=== PATIENT | female | born 1965 | race Caucasian/White ===

== ENCOUNTER → 2017-07-04 | Outpatient (CLI) | payer BC | END | disposition home or self-care (01) | LOC: C.PAPS 16:29 | PROVIDERS: ATTEND Physician Assistant | DX: Z01.419 Encounter for gynecological examination (general) (routine) without abnormal findings (principal); R87.610 Atypical squamous cells of undetermined significance on cytologic smear of cervix (ASC-US) ==

== ENCOUNTER 2022-04-10 11:24 | Inpatient (IN) ==
[2022-04-10] MEDS ORDERED: SODIUM CHLORIDE 0.9% 1000ML 1,000 ML IV STA (11:37)
[2022-04-10] MEDS ORDERED: ONDANSETRON INJ 2 MG/ML 2 ML VIAL IV STA (11:37)
[2022-04-10] MEDS ORDERED: PROMETHAZINE 12.5 MG/50.5 ML BAG IV STA (11:40)
--- NOTE | 2022-04-10 11:45 | Emergency Department Note ---
Impression & Plan Kidney stone on left side, Hydronephrosis, Abnormal LFTs ED Provider Note NAME: JOSE VELÁSQUEZ AGE: 57 SEX: F : 1965 ARRIVES VIA: Walk-In INFORMANT: Patient, ED PROVIDER(S): Cody Allen DO CHIEF COMPLAINT: Flank pain HPI: The patient is a 57-year-old male who presented to the emergency department for an evaluation of flank pain. The patient started having flank pain earlier in the week. She was seen in our facility by myself previously. She was diagnosed with a large proximal ureteral calculus which was associated with some hydronephrosis. The patient was treated in the usual fashion and was able to be discharged home as her pain was significantly improved. The patient returns emergency department today because of worsening pain. She states that she has been compliant with the outpatient medication regimen including Flomax Zofran and the stronger pain medication. She states that she called her family doctor and is starting to set up some follow-up after being in the emergency department. She states that she also noticed a low-grade fever of 100 degrees over the last 2 nights. She states this is atypical for her because her temperature is normally on the lower side. She has had no antipyretics since last evening. She states that she started noticing worsening pain this morning. She describes as a sharp pain especially on the left flank. The patient has been having nausea as well but the Zofran has been making this tolerable. ROS: See above HPI for pertinent positives & negatives. A total of 10 systems reviewed and were otherwise negative. PAST MEDICAL HISTORY: See Below PAST SURGICAL HISTORY: See Below FAMILY HISTORY: See Below SOCIAL HISTORY: See Below HOME MEDICATIONS: See Below ALLERGIES: See Below VITALS: See Below PHYSICAL EXAMINATION: GENERAL: The patient is awake and alert. She is very anxious and appears to be uncomfortable. EYES: The conjunctivae are clear. The pupils are round and reactive. EARS, NOSE, MOUTH AND THROAT: The nose is without any evidence of any deformity. NECK: The neck is nontender and supple. RESPIRATORY: Normal respiratory effort is noted there is no evidence of wheezing rhonchi or rales CARDIOVASCULAR: Regular rate and rhythm noted there no murmurs rubs or gallops normal S1 normal S2. GASTROINTESTINAL: The abdomen is soft and nondistended. There is left upper quadrant tenderness to palpation. There is no guarding rigidity. BACK: There is no midline tenderness. There is significant left CVA tenderness to percussion. MUSCULOSKELETAL/EXTREMITIES: There is no evidence of gross deformity full range of motion is noted in the hips and shoulders. SKIN: There is no obvious evidence of any rash. There are no petechiae, pallor or cyanosis noted. NEUROLOGIC: Patient is awake alert and oriented x3. Gait is steady. MEDICAL DECISION MAKING: The patient is a 57-year-old female who presented to the emergency department for an evaluation of flank pain. I did see the patient 4 days ago for similar complaints. At that time she was diagnosed with a large proximal kidney stone with hydronephrosis. She was treated in the emergency department and was feeling much better. There is no signs of infection and the patient was able to be discharged home to follow-up as an outpatient. She returns today because of ongoing and worsening pain. She was treated with IV fluids and IV pain medication in the emergency department. She was reevaluated multiple times. S he was significantly improved with her symptoms but she has been reporting fever over the last few days. Given the ongoing hydronephrosis I do feel the patient might be a candidate for a ureteral stent. For this reason I discussed her case with the on-call urologist. I also discussed this case with the on-call [facility] hospitalist. I discussed this plan with the patient and she was agreeable. She was given IV antibiotics in the emergency department. The patient was also found to have elevation in her liver function studies. This is not a new finding according to the patient. It may require further follow-up or work-up after her acute issues have been addressed. Triage Nursing notes reviewed. Prior medical records reviewed Vital Signs: reviewed and remarkable for no significant abnormalities Differential diagnosis: Renal colic, UTI, appendicitis, diverticulitis, mesenteric ischemia, aortic pathology, infections, inflammatory bowel disease, PUD, biliary pathology, as well as other pathologies. ER treatment provided: See below Diagnostics interpreted by me: ECG: none Cardiac Monitoring: An order was placed for continuous cardiac monitoring. The monitor shows a rate of 68 bpm with sinus rhythm. Laboratory studies: As stated above and show below. Imaging studies: See below Consultation(s): I discussed this case with Dr. Anderson is on-call for urology. I discussed this case with [facility]. Past Med/Surg History Surgical History H/O section History of appendectomy History of cholecystectomy History of loop electrosurgical excision procedure (LEEP) Family History Grandmother (Paternal) Myocardial infarction Brother Myocardial infarction Father Prostate cancer Denies family history of Ovarian cancer Breast cancer Colorectal cancer Social History Smoking Status: Never smoker Second Hand Exposure: No; Hx Alcohol Use: Yes Alcohol Intake Frequency: Monthly or Less Hx Substance Use: No Preferred Language: Bhutanese marital status: Current Living Situation: Spouse current occupational status: employed How many Children do You have: 2 Feels Safe at Home: Yes Childhood Exposure to Second-Hand Smoke: No caffeine: Yes Dental Care, Regularly: Yes Physical Activity Frequency: 1-2 Times per Week Seatbelt Use: always Sunscreen Use: Yes Allergies Allergies Allergy/AdvReac Type Severity Reaction Status Date / Time Penicillins Allergy Unknown Verified 04/06/22 15:28 Sulfa (Sulfonamide Allergy Unknown Verified 04/06/22 15:28 Antibiotics) Home Meds Home Medications Medication Instructions Recorded Confirmed paroxetine HCl 20 mg tablet 20 mg PO DAILY 10/20/21 04/10/22 Previous Rx's Medication Instructions Recorded ondansetron HCl 4 mg tablet 4 mg PO Q8H PRN #20 tab 04/06/22 oxycodone 5 mg tablet 5 mg PO Q6H PRN #20 tab 04/06/22 tamsulosin 0.4 mg capsule (Flomax) 0.4 mg PO HS #14 cap 04/06/22 Results & Data (ED) Vital Signs Vital Signs - 24 hr 04/10/22 11:30 04/10/22 12:08 04/10/22 12:54 Temperature 36.5 C Temperature Source Temporal Artery Scan Pulse Rate 86 Pulse Rate [Finger] 78 Pulse Rhythm Regular Pulse Strength Normal Respiratory Rate 20 18 Respiratory Effort / Characteristics Non-Labored Spontaneous Respiratory Depth Normal Respiratory Pattern Regular Blood Pressure 145/80 H Blood Pressure [Left Arm] 148/80 H Blood Pressure Mean 101 Blood Pressure Mean [Left Arm] 102 Blood Pressure Position Sitting Pulse Oximetry 98 96 91 Oxygen Delivery Method Room Air Room Air Room Air Sepsis Recent Fever Within 48 Hours No Sepsis New/Unexplained Change in Mental Status No Sepsis Action Taken by Nursing No Action Required 04/10/22 14:10 04/10/22 14:42 Temperature Temperature Source Pulse Rate Pulse Rate [Finger] 76 68 Pulse Rhythm Pulse Strength Respiratory Rate 24 18 Respiratory Effort / Characteristics Respiratory Depth Respiratory Pattern Blood Pressure Blood Pressure [Left Arm] 131/69 126/65 Blood Pressure Mean Blood Pressure Mean [Left Arm] 89 85 Blood Pressure Position Pulse Oximetry 94 97 Oxygen Delivery Method Room Air Room Air Sepsis Recent Fever Within 48 Hours Sepsis New/Unexplained Change in Mental Status Sepsis Action Taken by [facility]dc Medications Current Medication List: was personally reviewed by me Laboratory Data Attestation: I reviewed the patient's lab results. Result diagrams: 04/10/22 11:50 04/10/22 11:50 Lab Results 04/10/22 04/10/22 04/10/22 Range/Units 11:50 11:50 14:10 WBC 6.22 (4.8-10.8) K/uL RBC 4.41 (4.2-5.4) M/uL Hgb 13.6 (12.0-16.0) g/dL Hct 40.1 (37-47) % MCV 90.9 (80-100) fL MCH 30.8 (25-34) pg MCHC 33.9 (32-36) g/dL RDW Std Deviation 43.4 (36.4-46.3) fL RDW Coeff of Neri 13.0 (11.5-14.5) % Plt Count 157 (130-400) K/uL MPV 11.2 H (7.4-10.4) fL Immature Gran % (Auto) 0.2 % Neut % (Auto) 80.5 % Lymph % (Auto) 11.4 % [place] % (Auto) 7.1 % Eos % (Auto) 0.6 % Baso % (Auto) 0.2 % Neut # (Auto) 5.01 (1.4-6.5) K/uL Lymph # (Auto) 0.71 L (1.2-3.4) K/uL [place] # (Auto) 0.44 (0.11-0.59) K/uL Eos # (Auto) 0.04 (0-0.5) K/uL Baso # (Auto) 0.01 (0-0.2) K/uL Immature Gran # (Auto) 0.01 (0.00-0.02) K/uL PT (9.0-12.0) Seconds INR (0.9-1.1) Sodium 140 (136-145) mmol/L Potassium 3.3 L (3.5-5.1) mmol/L Chloride 101 (98-107) mmol/L Carbon Dioxide 31 (21-32) mmol/L Anion Gap 8 (3-11) BUN 14 (6-23) mg/dl Creatinine 1.01 (0.6-1.2) mg/dl Est Cr Clr Drug Dosing 60.6 ml/min Est GFR ( Amer) 71.1 ml/min Est GFR (Non-Af Amer) 61.3 ml/min BUN/Creatinine Ratio 13.9 (10-20) Glucose 123 H (70-99(Fasting)) mg/dl Calcium 9.4 (8.5-10.1) mg/dl Total Bilirubin 1.2 H (0.2-1.0) mg/dl AST 185 H (13-39) U/L ALT 202 H (7-52) U/L Alkaline Phosphatase 192 H (34-104) U/L Total Protein 7.2 (6.0-8.3) gm/dl Albumin 4.1 (3.4-5.0) gm/dl Globulin 3.1 (2.5-4.0) gm/dl Albumin/Globulin Ratio 1.3 (0.9-2) Lipase 15 (11-82) U/L Urine Color Urine Appearance (Clear) Urine pH (4.5-7.5) Ur Specific [place] (1.000-1.030) Urine Protein (Negative) Urine Glucose (UA) (Negative) Urine Ketones (Negative) Urine Blood (Negative) Urine Nitrite (Negative) Urine Bilirubin (Negative) Urine Urobilinogen (Negative) Ur Leukocyte Esterase (Negative) Urine WBC (Auto) (0-5) /hpf Urine RBC (Auto) (0-4) /hpf U Hyaline Cast (Auto) (0-5) /lpf U Epithel Cells (Auto) (0-5) /lpf Urine Bacteria (Auto) (Negative) SARS-CoV-2, RNA, NAAT NEGATIVE (NEGATIVE) 04/10/22 04/10/22 Range/Units 15:19 Unknown WBC (4.8-10.8) K/uL RBC (4.2-5.4) M/uL Hgb (12.0-16.0) g/dL Hct (37-47) % MCV (80-100) fL MCH (25-34) pg MCHC (32-36) g/dL RDW Std Deviation (36.4-46.3) fL RDW Coeff of Neri (11.5-14.5) % Plt Count (130-400) K/uL MPV (7.4-10.4) fL Immature Gran % (Auto) % Neut % (Auto) % Lymph % (Auto) % [place] % (Auto) % Eos % (Auto) % Baso % (Auto) % Neut # (Auto) (1.4-6.5) K/uL Lymph # (Auto) (1.2-3.4) K/uL [place] # (Auto) (0.11-0.59) K/uL Eos # (Auto) (0-0.5) K/uL Baso # (Auto) (0-0.2) K/uL Immature Gran # (Auto) (0.00-0.02) K/uL PT 10.7 (9.0-12.0) Seconds INR 1.0 (0.9-1.1) Sodium (136-145) mmol/L Potassium (3.5-5.1) mmol/L Chloride (98-107) mmol/L Carbon Dioxide (21-32) mmol/L Anion Gap (3-11) BUN (6-23) mg/dl Creatinine (0.6-1.2) mg/dl Est Cr Clr Drug Dosing ml/min Est GFR ( Amer) ml/min Est GFR (Non-Af Amer) ml/min BUN/Creatinine Ratio (10-20) Glucose (70-99(Fasting)) mg/dl Calcium (8.5-10.1) mg/dl Total Bilirubin (0.2-1.0) mg/dl AST (13-39) U/L ALT (7-52) U/L Alkaline Phosphatase (34-104) U/L Total Protein (6.0-8.3) gm/dl Albumin (3.4-5.0) gm/dl Globulin (2.5-4.0) gm/dl Albumin/Globulin Ratio (0.9-2) Lipase (11-82) U/L Urine Color Dark Yellow Urine Appearance Clear (Clear) Urine pH 5.5 (4.5-7.5) Ur Specific [place] 1.033 H (1.000-1.030) Urine Protein 2+ H (Negative) Urine Glucose (UA) Negative (Negative) Urine Ketones 2+ H (Negative) Urine Blood Negative (Negative) Urine Nitrite Positive A (Negative) Urine Bilirubin 2+ H (Negative) Urine Urobilinogen Positive H (Negative) Ur Leukocyte Esterase 1+ H (Negative) Urine WBC (Auto) 1-5 (0-5) /hpf Urine RBC (Auto) 5-10 H (0-4) /hpf U Hyaline Cast (Auto) 5-10 H (0-5) /lpf U Epithel Cells (Auto) >30 H (0-5) /lpf Urine Bacteria (Auto) Negative (Negative) SARS-CoV-2, RNA, NAAT (NEGATIVE) Administered Medications Morphine Sulfate (Morphine Sulfate 4 Mg/Ml 1 Ml Carp\Vial) 4 mg IV Q15M PRN PRN Reason: Pain Stop: 04/24/22 11:36 Last Admin: 04/10/22 12:24 Dose: 4 mg Documented by: [id number] Admin: 04/10/22 11:58 Dose: 4 mg Documented by: [id number] Discontinued Medications Sodium Chloride (Nss 1000ml) 1,000 mls @ 999 mls/hr IV .Q1H1M STA Stop: 04/10/22 12:37 Last Infusion: 04/10/22 13:00 Dose: 0 mls/hr Documented by: [id number] Admin: 04/10/22 11:58 Dose: 999 mls/hr Documented by: [id number] Promethazine HCl (Phenergan) 12.5 mg in 50.5 mls @ 202 mls/hr IV NOW STA Stop: 04/10/22 11:54 Last Infusion: 04/10/22 12:45 Dose: 0 mls/hr Documented by: [id number] Admin: 04/10/22 12:17 Dose: 202 mls/hr Documented by: [id number] Ceftriaxone Sodium (Rocephin) 2,000 mg in 70 mls @ 140 mls/hr IV NOW STA Stop: 04/10/22 14:18 Last Infusion: 04/10/22 14:31 Dose: 0 mls/hr Documented by: [id number] Admin: 04/10/22 14:09 Dose: 140 mls/hr Documented by: [id number] Ondansetron HCl (Ondansetron Inj 2 Mg/Ml 2 Ml Vial) 4 mg IV NOW STA Stop: 04/10/22 11:38 Last Admin: 04/10/22 11:58 Dose: 4 mg Documented by: [id number] Imaging Data Radiologist's Impression: KUB X-Ray 04/10/22 11:37 XR KUB/Abdomen 1 view CLINICAL HISTORY: left sided pain, stone. COMPARISON STUDY: No previous studies for comparison. TECHNIQUE: 2 supine radiographs were obtained. FINDINGS: The bowel gas pattern is within normal limits without evidence for dilatation or obstruction. There is no evidence for organomegaly or gross intra-abdominal ma ss. There is a 3 mm calcification seen in the region of the left renal pelvis. No other calcifications are identified. No acute osseous pathology. IMPRESSION: 1. Evidence for a 3 mm calculus in the region of the left renal pelvis. ACT 112: Negative or not required by law. Electronically signed by: Grabiel Vargas M.D. 04/10/2022 12:29 PM Renal Ultrasound 04/10/22 11:37 US renal/blad retro comp CLINICAL HISTORY: left flanki pain, hx of stone. COMPARISON: Standard radiograph from 04/10/2022 TECHNIQUE: Multiple grayscale and color images of the kidneys and bladder. FINDINGS: Right kidney: The kidney is normal in size and echogenicity. There is no evidence for renal calculus or hydronephrosis. There is no evidence for solid renal mass. There is no evidence for medical renal disease. The kidney measures 11.0 cm in greatest length. Left kidney: The kidney is normal in size and echogenicity. There is mild to moderate left-sided hydronephrosis. There is an approximately 6 mm calculus present in the region of the left UPJ producing the obstruction present. There is no evidence for solid renal mass. There is no evidence for medical renal dise ase. The kidney measures Bladder: The patient voided prior to the study. No ureteral jets are identified. IMPRESSION: 1. Evidence for 6 mm left UPJ calculus with mild to moderate left-sided hydronephrosis. ACT 112: Negative or not required by law. Electronically signed by: Grabiel Vargas M.D. 04/10/2022 1:08 PM Discharge Plan Visit Data Chief Complaint: Kidney Stone Stated Complaint: LEFT FLANK PAIN, KIDNEY STONES ED Provider: Cody Allen Discharge Problem: Kidney stone on left side, Hydronephrosis, Abnormal LFTs Patient Disposition: Being Evaluated by Hospitalist Forms Stand Alone Forms: My [facility] Prescriptions Prescriptions: No Action paroxetine HCl 20 mg tablet 20 mg PO DAILY RF: 0 tamsulosin [Flomax] 0.4 mg capsule 0.4 mg PO HS Qty: 14 RF: 0 oxycodone 5 mg tablet 5 mg PO Q6H PRN (Reason: pain) Qty: 20 RF: 0 ondansetron HCl 4 mg tablet 4 mg PO Q8H PRN (Reason: nausea and vomiting) Qty: 20 RF: 0 Referrals Referrals: PCP,NO [Physician] -
[2022-04-10] MEDS: MoRPHine SULFATE 4 MG/ML 1 ML CARP\\VIAL IV PRN ×2 (11:58→12:24)
[2022-04-10 12:20] LABS: Appearance Urine Clear (Clear); Bacteria Urine Automated Negative (Negative); Blood Urine Negative (Negative); Color Urine Dark Yellow; Epithelial Cell Urine Auto >30 /lpf (0-5); Glucose Urine UA Negative (Negative); Ketones Urine 2+ (Negative); Leukocyte Esterase Urine 1+ (Negative); Nitrite Urine Positive (Negative); Protein Urine 2+ (Negative); Specific Gravity Urine 1.033 (1.000-1.030); Urobilinogen Urine Positive (Negative); pH Urine 5.5 (4.5-7.5)
[2022-04-10 12:21] LABS: Bilirubin Urine 2+ (Negative)
[2022-04-10 12:30] LABS: Albumin Globulin Ratio 1.3 (0.9-2); Albumin Level 4.1 gm/dl (3.4-5.0); BUN Creatinine Ratio 13.9 (10-20); Bilirubin,Total 1.2 mg/dl (0.2-1.0); Calcium 9.4 mg/dl (8.5-10.1); Creatinine Clr Calc Pharmacy 60.6 ml/min; Est GFR (African American) 71.1 ml/min; Est GFR (Non-African American) 61.3 ml/min; Globulin 3.1 gm/dl (2.5-4.0); Potassium 3.3 mmol/L (3.5-5.1); Total Protein 7.2 gm/dl (6.0-8.3)
--- NOTE | 2022-04-10 12:31 | XRay Report ---
XR KUB/Abdomen 1 view CLINICAL HISTORY: left sided pain, stone. COMPARISON STUDY: No previous studies for comparison. TECHNIQUE: 2 supine radiographs were obtained. FINDINGS: The bowel gas pattern is within normal limits without evidence for dilatation or obstruction. There i s no evidence for organomegaly or gross intra-abdominal mass. There is a 3 mm calcification seen in t he region of the left renal pelvis. No other calcifications are identified. No acute osseous patholog y. IMPRESSION: 1. Evidence for a 3 mm calculus in the region of the left renal pelvis. ACT 112: Negative or not required by law. Electronically signed by: Grabiel Vargas M.D. 04/10/2022 12:29 PM
[2022-04-10 12:45] LABS: Basophils # (auto) 0.01 K/uL (0-0.2); Basophils % (auto) 0.2 %; Eosinophils # (auto) 0.04 K/uL (0-0.5); Eosinophils % (auto) 0.6 %; Hematocrit (blood only) 40.1 % (37-47); Hemoglobin 13.6 g/dL (12.0-16.0); Immature Granulocytes # (auto) 0.01 K/uL (0.00-0.02); Immature Granulocytes % (auto) 0.2 %; Lymphocytes # (auto) 0.71 K/uL (1.2-3.4); Lymphocytes % (auto) 11.4 %; Mean Corpuscular Hemoglobin 30.8 pg (25-34); Mean Corpuscular Hgb Conc 33.9 g/dL (32-36); Mean Corpuscular Volume 90.9 fL (80-100); Mean Platelet Volume 11.2 fL (7.4-10.4); Monocytes # (auto) 0.44 K/uL (0.11-0.59); Monocytes % (auto) 7.1 %; Neutrophils # (auto) 5.01 K/uL (1.4-6.5); Neutrophils % (auto) 80.5 %; Platelet Count 157 K/uL (130-400); RDW Standard Deviation 43.4 fL (36.4-46.3); Red Blood Count 4.41 M/uL (4.2-5.4); White Blood Count 6.22 K/uL (4.8-10.8)
--- NOTE | 2022-04-10 13:08 | Ultrasound Report ---
US renal/blad retro comp CLINICAL HISTORY: left flanki pain, hx of stone. COMPARISON: Standard radiograph from 04/10/2022 TECHNIQUE: Multiple grayscale and color images of the kidneys and bladder. FINDINGS: Right kidney: The kidney is normal in size and echogenicity. There is no evidence for renal calculus or hydronephrosis. There is no evidence for solid renal mass. There is no evidence for medical renal disease. The kidney measures 11.0 cm in greatest length. Left kidney: The kidney is normal in size and echogenicity. There is mild to moderate left-sided hydr onephrosis. There is an approximately 6 mm calculus present in the region of the left UPJ producing t he obstruction present. There is no evidence for solid renal mass. There is no evidence for medical r enal disease. The kidney measures Bladder: The patient voided prior to the study. No ureteral jets are identified. IMPRESSION: 1. Evidence for 6 mm left UPJ calculus with mild to moderate left-sided hydronephrosis. ACT 112: Negative or not required by law. Electronically signed by: Grabiel Vargas M.D. 04/10/2022 1:08 PM
[2022-04-10] MEDS ORDERED: cefTRIAXone SODIUM 2,000 MG/70 ML BAG IV STA (13:49)
--- NOTE | 2022-04-10 13:56 | Urology Consultation ---
Date of Consultation April 10, 2022 Assessment & Plan (1) Kidney stone on left side: 57-year-old female with a 4 mm left proximal ureteral calculus with 1 bounce back to the ED as well as subjective fevers at home Recommend admission to medicine team Prophylactic antibiotics Recommend cystoscopy with left retrograde pyelogram and left ureteral stent placement. Based on n.p.o. status and OR availability, will either do this tonight versus tomorrow morning. Risks and benefits discussed. Consent signed. Patient marked. We will let primary team know OR plan tonight in the event that case waits until tomorrow and she can have a diet History of Present Illness Reason for Consultation: Left nephrolithiasis History of Present Illness 57-year-old female with a left-sided obstructing ureteral stone. She initially presented to the emergency department 04/06/[address] scan was performed. This showed a 4 mm left proximal obstructing ureteral calculus. Labs showed a normal white count, creatinine of 0.92 and a urinalysis that was negative outside of microscopic hematuria. She was discharged from the ED. She returned to the ED today with left flank pain and subjective fevers. Labs showed a normal white count of 6.2, a creatinine that was stable at 1.01, and a urinalysis that was positive for nitrites, 1+ leukocyte Estrace, 1-5 WBCs, 5-10 RBCs and negative for bacteria. Renal ultrasound showed left hydronephrosis and a KUB showed a nonobstructing stone in the left renal pelvis. She last ate solid food at 10 AM today. She was afebrile and hemodynamically stable in the ED. Reports pain is controlled now. Allergies Allergy/AdvReac Type Severity Reaction Status Date / Time Penicillins Allergy Unknown Verified 04/06/22 15:28 Sulfa (Sulfonamide Allergy Unknown Verified 04/06/22 15:28 Antibiotics) Home Medications Medication Instructions Recorded Confirmed Type paroxetine HCl 20 mg tablet 20 mg PO DAILY 10/20/21 04/06/22 History ondansetron HCl 4 mg tablet 4 mg PO Q8H PRN #20 tab 04/06/22 Rx oxycodone 5 mg tablet 5 mg PO Q6H PRN #20 tab 04/06/22 Rx tamsulosin 0.4 mg capsule (Flomax) 0.4 mg PO HS #14 cap 04/06/22 Rx Patient History Surgical History H/O section History of appendectomy History of cholecystectomy History of loop electrosurgical excision procedure (LEEP) Family History Grandmother (Paternal) Myocardial infarction Brother Myocardial infarction Father Prostate cancer Denies family history of Ovarian cancer Breast cancer Colorectal cancer Social History Smoking Status: Never smoker Second Hand Exposure: No; Hx Alcohol Use: Yes Alcohol Intake Frequency: Monthly or Less Hx Substance Use: No Preferred Language: Dominican marital status: Current Living Situation: Spouse current occupational status: employed How many Children do You have: 2 Feels Safe at Home: Yes Childhood Exposure to Second-Hand Smoke: No caffeine: Yes Dental Care, Regularly: Yes Physical Activity Frequency: 1-2 Times per Week Seatbelt Use: always Sunscreen Use: Yes Review of Systems Review of Systems: 14 point review of systems negative outside of what is listed above in HPI Physical Exam Physical Exam: General: Alert and oriented, no acute distress HEENT: Normocephalic, mucous membranes moist Pulmonary: Nonlabored respirations Abdomen: Nondistended Extremities: Moves all 4 spontaneously Neuro: No gross deficits Skin: Warm, dry, no rashes noted Results & Data ([facility]) Vital Signs (Past 12 Hours) Vital Signs Temp Pulse Pulse Resp BP BP Pulse Ox 04/10/22 12:54 78 18 148/80 H 91 04/10/22 12:08 96 04/10/22 11:30 36.5 C 86 20 145/80 H 98 PG Care Time/CCT Total # of Minutes Spent Total Time Spent with Patient: Total time spent is greater than 50% in coordination of care (as documented) at patient's floor/unit and/or counseling patient: [place] [address] Inpt Consult Level 5 Patient Type New Diagnoses Kidney stone on left side N20.0
--- NOTE | 2022-04-10 14:44 | History & Physical Report ---
Date of Service April 10, 2022 Assessment & Plan (1) Hydronephrosis: (2) Kidney stone on left side: Plan: - Admit to med surg - Continue fluids, Flomax -Antiemetics with Zofran, morphine sulfate IV for pain -UA, follow culture -Please strain all urine -Urology consulted, Dr. Anderson planning to do stent in the morning, n.p.o. after midnight, allow diet today as patient ate around 10 AM today (3) Abnormal LFTs: Plan: -AST 185, ALT 202, alk phos 192, follow with a.m. labs possible that Paxil has caused increase in LFTs, patient notes that this has been elevated since last May 2021, will need to be followed by PCP as outpatient (4) Depression: Plan: -Paxil as per her [employer] meds 20 mg daily DVT prophylaxis - teds, scds, no heparin in the event of likely placement of urological stent tomorrow morning CODE: Full code Dispo: From home, likely to remain in the hospital x 1-2 days History of Present Illness Chief Complaint: Abdominal pain Primary Care Provider: Hilary Fleming MD This is a 57-year-old female without significant past medical history, who presented to the ER initially on 04/06 where she had a CT of the abdomen pelvis completed showing left mild to moderate hydronephrosis and proximal hydroureter with a 4 mm calculus present within the proximal left ureter just distal to the UPJ producing the obstruction present. 2 additional nonobstructing renal calculi are present measuring 4 and 6 mm. No evidence of right renal calculus or hydronephrosis. She was treated with pain medication and fluid and was improved enough that she wished to go home at that point in time. She represents today for worsening pain, nausea, inability to tolerate po intake, and pain rated 10/10 from the left lower back wrapping around her flank and into the left lower abdomen. KUB of the abdomen shows 3 mm calculus in the left renal pelvis, and renal ultrasound completed today shows 6 mm left UPJ calculus with mild to moderate left-sided hydronephrosis. Her pain is improved at this point after fluids and pain medication in the ER. She reports no bowel movement in 3 days and was using percocet at home a few days ago. She has been medicating herself with Tylenol and ibuprofen alternating at home due to significant pain. She reports having a fever of 100 at home on Monday evening, and admits to having sweats and chills. She last ate this morning around 10 AM. Urology was consulted and recommends that the patient stay for possible stent placement in the morning. Allergies Allergy/AdvReac Type Severity Reaction Status Date / Time Penicillins Allergy Severe hives Verified 04/10/22 17:14 Sulfa (Sulfonamide Allergy itching Verified 04/10/22 17:14 Antibiotics) Home Medications Medication Instructions Recorded Confirmed Type paroxetine HCl 20 mg tablet 20 mg PO DAILY 10/20/21 04/10/22 History ondansetron HCl 4 mg tablet 4 mg PO Q8H PRN #20 tab 04/06/22 04/10/22 Rx oxycodone 5 mg tablet 5 mg PO Q6H PRN #20 tab 04/06/22 04/10/22 Rx tamsulosin 0.4 mg capsule (Flomax) 0.4 mg PO HS #14 cap 04/06/22 04/10/22 Rx Past Med/Surg History Medical History (Updated 04/10/22 @ 17:13 by Gisele Pinon DO) Abnormal LFTs Depression Hyperplastic colon polyp Surgical History H/O section History of appendectomy History of cholecystectomy History of loop electrosurgical excision procedure (LEEP) Family History Grandmother (Paternal) Myocardial infarction Brother Myocardial infarction Father Prostate cancer Denies family history of Ovarian cancer Breast cancer Colorectal cancer Social History Smoking Status: Never smoker Second Hand Exposure: No; Hx Alcohol Use: Yes Alcohol Intake Frequency: Monthly or Less Hx Substance Use: No Preferred Language: Latvian marital status: Current Living Situation: Spouse current occupational status: employed How many Children do You have: 2 Feels Safe at Home: Yes Childhood Exposure to Second-Hand Smoke: No caffeine: Yes Dental Care, Regularly: Yes Physical Activity Frequency: 1-2 Times per Week Seatbelt Use: always Sunscreen Use: Yes Review of Systems Review of Systems: Constitutional: + fever, sweats and chills Eyes: No diplopia, no worsening or blurred vision ENT: normal hearing, no trouble swallowing Respiratory: No cough, sputum, dyspnea at rest or on exertion Cardiovascular: No chest pain, tightness or palpitations Abdomen: As per HPI, + pain, nausea, vomiting, constipation Musculoskeletal: No joint pain, calf pain, swelling Neurologic: No weakness, numbness/tingling, or balance problems Psychiatric: + Anxiety and depression on Paxil for many years Skin: No rash or itch Physical Exam Physical Exam: General: awake, alert, no apparent distress Head: Normocephalic, atraumatic ENT: PERRL, EOMI, no pharyngeal exudate, mucous membranes moist Chest: Clear to auscultation, on room air, no adventitious breath sounds Cardiac: Regular rate and rhythm, no murmur, no JVD, normal peripheral pulses, good capillary refill Abdominal: NABS x 4 quadrants, soft, + slightly distended, negative CVA tenderness, + tender to light palpation left flank and left lower quadrant, no rebound or guarding Extremities: Normal inspection, no peripheral edema or erythema, calfs nontender to palpation Psych: Normal mood and affect Neuro: AAO x 3, strength intact bilaterally and rated 5/5, no motor deficits, speech is clear, no peripheral sensory deficits Results & Data Results & Data ([facility]) Vital Signs (Past 12 Hours) Vital Signs Temp Pulse Pulse Resp BP BP Pulse Ox 04/10/22 14:10 76 24 131/69 94 04/10/22 12:54 78 18 148/80 H 91 04/10/22 12:08 96 04/10/22 11:30 36.5 C 86 20 145/80 H 98 Laboratory Results 04/10/22 Unknown Urine Culture - Pending Urine,Clean Catch 04/10/22 04/10/22 04/10/22 Unknown 14:10 11:50 WBC RBC Hgb Hct MCV MCH MCHC RDW Std Deviation RDW Coeff of Neri Plt Count MPV Immature Gran % (Auto) Neut % (Auto) Lymph % (Auto) [place] % (Auto) Eos % (Auto) Baso % (Auto) Neut # (Auto) Lymph # (Auto) [place] # (Auto) Eos # (Auto) Baso # (Auto) Immature Gran # (Auto) Sodium 140 Potassium 3.3 L Chloride 101 Carbon Dioxide 31 Anion Gap 8 BUN 14 Creatinine 1.01 Est Cr Clr Drug Dosing 60.6 Est GFR ( Amer) 71.1 Est GFR (Non-Af Amer) 61.3 BUN/Creatinine Ratio 13.9 Glucose 123 H Calcium 9.4 Total Bilirubin 1.2 H AST 185 H ALT 202 H Alkaline Phosphatase 192 H Total Protein 7.2 Albumin 4.1 Globulin 3.1 Albumin/Globulin Ratio 1.3 Lipase 15 Urine Color Dark Yellow Urine Appearance Clear Urine pH 5.5 Ur Specific [place] 1.033 H Urine Protein 2+ H Urine Glucose (UA) Negative Urine Ketones 2+ H Urine Blood Negative Urine Nitrite Positive A Urine Bilirubin 2+ H Urine Urobilinogen Positive H Ur Leukocyte Esterase 1+ H Urine WBC (Auto) 1-5 Urine RBC (Auto) 5-10 H U Hyaline Cast (Auto) 5-10 H U Epithel Cells (Auto) >30 H Urine Bacteria (Auto) Negative SARS-CoV-2, RNA, NAAT NEGATIVE 04/10/22 11:50 WBC 6.22 RBC 4.41 Hgb 13.6 Hct 40.1 MCV 90.9 MCH 30.8 MCHC 33.9 RDW Std Deviation 43.4 RDW Coeff of Neri 13.0 Plt Count 157 MPV 11.2 H Immature Gran % (Auto) 0.2 Neut % (Auto) 80.5 Lymph % (Auto) 11.4 [place] % (Auto) 7.1 Eos % (Auto) 0.6 Baso % (Auto) 0.2 Neut # (Auto) 5.01 Lymph # (Auto) 0.71 L [place] # (Auto) 0.44 Eos # (Auto) 0.04 Baso # (Auto) 0.01 Immature Gran # (Auto) 0.01 Sodium Potassium Chloride Carbon Dioxide Anion Gap BUN Creatinine Est Cr Clr Drug Dosing Est GFR ( Amer) Est GFR (Non-Af Amer) BUN/Creatinine Ratio Glucose Calcium Total Bilirubin AST ALT Alkaline Phosphatase Total Protein Albumin Globulin Albumin/Globulin Ratio Lipase Urine Color Urine Appearance Urine pH Ur Specific [place] Urine Protein Urine Glucose (UA) Urine Ketones Urine Blood Urine Nitrite Urine Bilirubin Urine Urobilinogen Ur Leukocyte Esterase Urine WBC (Auto) Urine RBC (Auto) U Hyaline Cast (Auto) U Epithel Cells (Auto) Urine Bacteria (Auto) SARS-CoV-2, RNA, NAAT Diagnostic Findings KUB X-Ray 04/10/22 11:37 XR KUB/Abdomen 1 view CLINICAL HISTORY: left sided pain, stone. COMPARISON STUDY: No previous studies for comparison. TECHNIQUE: 2 supine radiographs were obtained. FINDINGS: The bowel gas pattern is within normal limits without evidence for dilatation or obstruction. There is no evidence for organomegaly or gross intra-abdominal mass. There is a 3 mm calcification seen in the region of the left renal pelvis. No other calcifications are identified. No acute osseous pathology. IMPRESSION: 1. Evidence for a 3 mm calculus in the region of the left renal pelvis. ACT 112: Negative or not required by law. Electronically signed by: Grabiel Vargas M.D. 04/10/2022 12:29 PM Renal Ultrasound 04/10/22 11:37 US renal/blad retro comp CLINICAL HISTORY: left flanki pain, hx of stone. COMPARISON: Standard radiograph from 04/10/2022 TECHNIQUE: Multiple grayscale and color images of the kidneys and bladder. FINDINGS: Right kidney: The kidney is normal in size and echogenicity. There is no evidence for renal calculus or hydronephrosis. There is no evidence for solid renal mass. There is no evidence for medical renal disease. The kidney measures 11.0 cm in greatest length. Left kidney: The kidney is normal in size and echogenicity. There is mild to moderate left-sided hydronephrosis. There is an approximately 6 mm calculus present in the region of the left UPJ producing the obstruction present. There is no evidence for solid renal mass. There is no evidence for medical renal disease. The kidney measures Bladder: The patient voided prior to the study. No ureteral jets are identified. IMPRESSION: 1. Evidence for 6 mm left UPJ calculus with mild to moderate left-sided hydronephrosis. ACT 112: Negative or not required by law. Electronically signed by: Grabiel Vargas M.D. 04/10/2022 1:08 PM Code Status & VTE Plan Code Status Full code-discussed with the patient at bedside Supervising Physician Co-Signing Physician Notes I have seen and examined the patient and have discussed the case with the provider above. I agree with the assessment and plan as stated. 57-year-old female presents with acute worsening left flank pain with radiation to the left lower quadrant. Symptoms started approximately 5 days ago and she was seen in the ER. She was sent home and felt well for couple days but pain progressively became intolerant. She reports some diaphoretic episodes indicating a fever to her but denies chills. She did vomit once and has had no appetite. She has been alternating ibuprofen and Tylenol at home and had 2 oxycodone tablets for severe pain. Lab work today reveals no leukocytosis and hemodynamically she is stable. She is improved since administration of morphine. Additional work-up reveals a low potassium level concentrated urine with presence of ketones and protein consistent with poor appetite over the last several days. Microscopic hematuria in the urine is consistent with kidney stone. There is no evidence of anemia. She has a normal kidney function. There is a mild elevation of bilirubin to 1.2 and a progressively increased AST and ALT, known to be elevated for the past year, and being monitored as outpatient. Most recent AST was January 21, 2022 at 77 now is 185. ALT at that time was 33 now 202. Alk phos at that time 95 now 192. For her acute flank pain secondary to obstructive uropathy, urology is considering a stent procedure. We will continue IV fluids and Flomax and strain all urine. Continue supportive care for this. We will also check additional etiologies for elevated liver function test and consult GI for thoughts and additional recommendations. Work-up will include hepatic ultrasound with Doppler to exclude obstruction and look at hepatic architecture. We will also check for evidence of iron overload, acute viral hepatitis, acetaminophen level in the setting of increased use, and check thyroid function and INR. CONSTITUTIONAL: WNWD, vitals as above, generally NAD EYES: normal conjunctivae, no scleral icterus ENT: external ear and nose normal, MMM NECK: trachea midline RESPIRATORY: clear to auscultation bilaterally, no crackles, rales or wheezes, normal respiratory effort CARDIOVASCULAR: regular rate and rhythm, S1 and 2 heard without murmurs, gallops or rubs, no JVD, no peripheral edema CHEST: inspection of chest was normal GASTROINTESTINAL: normal bowel sounds, soft, nontender except when palpating newar LUQ and L flank, ND, no guarding, + L CVA tenderness. MUSCULOSKELETAL: strength 5/5 throughout, head is normocephalic and atraumatic SKIN: warm and dry NEUROLOGIC: CN 2-12 grossly intact, no sensory deficit, normal cognition, normal speech, no tremor PSYCHIATRIC: alert cooperative and oriented to person, place and time. Euthymic mood, makes good eye contact, language grossly intact, recent and remote memory grossly intact. A/P: 57 yo F with obstructive uropathy 2/2 nephrolithiasis and progressively elevated transaminitis. -consult Urology for stenting and continue supportive care alma-procedurally. -strain all urine, IVF, Flomax -additional workup for LFT elevation as above. -GI consult routine. Gisele Pinon DO [facility] ([facility] Hydronephrosis Hydronephrosis type: unspecified Qualified Code(s): N13.30 - Unspecified hydronephrosis
--- NOTE | 2022-04-10 15:19 | Communication Note ---
Date of Service: April 10, 2022 57-year-old female presents with acute worsening left flank pain with radiation to the left lower quadrant. Symptoms started approximately 5 days ago and she was seen in the ER. She was sent home and felt well for couple days but pain progressively became intolerant. She reports some diaphoretic episodes indicating a fever to her but denies chills. She did vomit once and has had no appetite. She has been alternating ibuprofen and Tylenol at home and had 2 oxycodone tablets for severe pain. Lab work today reveals no leukocytosis and hemodynamically she is stable. She is improved since administration of morphine. Additional work-up reveals a low potassium level concentrated urine with presence of ketones and protein consistent with poor appetite over the last several days. Microscopic hematuria in the urine is consistent with kidney stone. There is no evidence of anemia. She has a normal kidney function. There is a mild elevation of bilirubin to 1.2 and a progressively increased AST and ALT, known to be elevated for the past year, and being monitored as outpatient. Most recent AST was January 21, 2022 at 77 now is 185. ALT at that time was 33 now 202. Alk phos at that time 95 now 192. For her acute flank pain secondary to obstructive uropathy, urology is considering a stent procedure. We will continue IV fluids and Flomax and strain all urine. Continue supportive care for this. We will also check additional etiologies for elevated liver function test and consult GI for thoughts and additional recommendations. Work-up will include hepatic ultrasound with Doppler to exclude obstruction and look at hepatic architecture. We will also check for evidence of iron overload, acute viral hepatitis, acetaminophen level in the setting of increased use, and check thyroid function and INR. CONSTITUTIONAL: WNWD, vitals as above, generally NAD EYES: normal conjunctivae, no scleral icterus ENT: external ear and nose normal, MMM NECK: trachea midline RESPIRATORY: clear to auscultation bilaterally, no crackles, rales or wheezes, normal respiratory effort CARDIOVASCULAR: regular rate and rhythm, S1 and 2 heard without murmurs, gallops or rubs, no JVD, no peripheral edema CHEST: inspection of chest was normal GASTROINTESTINAL: normal bowel sounds, soft, nontender except when palpating newar LUQ and L flank, ND, no guarding, + L CVA tenderness. MUSCULOSKELETAL: strength 5/5 throughout, head is normocephalic and atraumatic SKIN: warm and dry NEUROLOGIC: CN 2-12 grossly intact, no sensory deficit, normal cognition, normal speech, no tremor PSYCHIATRIC: alert cooperative and oriented to person, place and time. Euthymic mood, makes good eye contact, language grossly intact, recent and remote memory grossly intact. A/P: 57 yo F with obstructive uropathy 2/2 nephrolithiasis and progressively elevated transaminitis. -consult Urology for stenting and continue supportive care alma-procedurally. -strain all urine, IVF, Flomax -additional workup for LFT elevation as above. -GI consult routine. Gisele Pinon DO [facility] Hospitalist
[2022-04-10 15:53] LABS: Prothrombin Time 10.7 Seconds (9.0-12.0)
[2022-04-10 16:23] LABS: Ferritin 589.8 ng/ml (8-388)
[2022-04-10] MEDS ORDERED: ONDANSETRON INJ 2 MG/ML 2 ML VIAL IV PRN (17:12)
[2022-04-10] MEDS ORDERED: MoRPHine SULFATE 4 MG/ML 1 ML CARP\\VIAL IV PRN (17:12)
[2022-04-10] MEDS ORDERED: ACETAMINOPHEN 325 MG TAB PO PRN (17:12)
[2022-04-10] MEDS ORDERED: KETOROLAC TROMETHAMINE 15 MG/ML VIAL IV PRN (17:12)
[2022-04-10] MEDS ORDERED: MoRPHine SULFATE 2 MG/ML CARP IV PRN (17:12)
[2022-04-10] MEDS: SODIUM CHLORIDE 0.9% 1000ML 1,000 ML IV SCH (17:32)
[2022-04-10] MEDS: TAMSULOSIN HCL 0.4 MG CAP PO SCH (21:15)
[2022-04-11] MEDS: SODIUM CHLORIDE 0.9% 1000ML 1,000 ML IV SCH ×2 (01:15→10:25)
[2022-04-11 06:12] LABS: Hematocrit (blood only) 32.6 % (37-47); Hemoglobin 10.9 g/dL (12.0-16.0); Mean Corpuscular Hemoglobin 30.5 pg (25-34); Mean Corpuscular Hgb Conc 33.4 g/dL (32-36); Mean Corpuscular Volume 91.3 fL (80-100); Mean Platelet Volume 10.6 fL (7.4-10.4); Platelet Count 140 K/uL (130-400); RDW Coefficient of Variation 13.3 % (11.5-14.5); RDW Standard Deviation 44.4 fL (36.4-46.3); Red Blood Count 3.57 M/uL (4.2-5.4); White Blood Count 4.29 K/uL (4.8-10.8)
[2022-04-11 06:45] LABS: Albumin Globulin Ratio 1.3 (0.9-2); Albumin Level 3.1 gm/dl (3.4-5.0); BUN Creatinine Ratio 12.1 (10-20); Bilirubin Direct 0.2 mg/dl (0-0.2); Bilirubin,Total 0.7 mg/dl (0.2-1.0); Calcium 7.9 mg/dl (8.5-10.1); Creatinine Clr Calc Pharmacy 62.2 ml/min; Est GFR (African American) 72.8 ml/min; Est GFR (Non-African American) 62.8 ml/min; Globulin 2.3 gm/dl (2.5-4.0); Potassium 3.6 mmol/L (3.5-5.1); Total Protein 5.4 gm/dl (6.0-8.3)
--- NOTE | 2022-04-11 07:33 | Anesthesiology Consultation ---
Date of Service April 11, 2022 Assessment & Plan Chart Review Chart Review: Acceptable Risk for Surgery History Surgery Operation Date: 04/10/22 18:00 Proposed Procedures p Cytsoscopy with Left Ureteral Stent insertion - Nicholas Anderson MD Operation Date: 04/11/22 09:45 Proposed Procedures p Cysto, Left Ureteral Stent Insertion/Removal - Lisandro Amezquita, Height/Weight Height: 5 ft 5 in Weight: 73.4 kg Allergies Allergy/AdvReac Type Severity Reaction Status Date / Time Penicillins Allergy Severe hives Verified 04/10/22 17:14 Sulfa (Sulfonamide Allergy itching Verified 04/10/22 17:14 Antibiotics) Medications Home Medications Medication Instructions Recorded Confirmed Last Taken paroxetine HCl 20 mg tablet 20 mg PO DAILY 10/20/21 04/10/22 04/10/22 ondansetron HCl 4 mg tablet 4 mg PO Q8H PRN #20 tab 04/06/22 04/10/22 04/10/22 oxycodone 5 mg tablet 5 mg PO Q6H PRN #20 tab 04/06/22 04/10/22 04/10/22 tamsulosin 0.4 mg capsule (Flomax) 0.4 mg PO HS #14 cap 04/06/22 04/10/22 04/10/22 Active Medications Generic Name Dose Route Start Last Admin Trade Name Freq PRN Reason Stop Dose Admin Sodium Chloride 1,000 mls @ 125 mls/hr 04/10/22 17:12 04/11/22 01:15 Nss 1000ml IV 05/10/22 17:11 125 mls/hr .Q8H ROYER Administration Ketorolac Tromethamine 15 mg 04/10/22 17:12 04/11/22 02:24 Ketorolac Tromethamine 15 Mg/Ml Vial IV 04/15/22 17:11 15 mg Q6H PRN Administration Pain Morphine Sulfate 4 mg 04/10/22 17:12 04/11/22 02:00 Morphine Sulfate 4 Mg/Ml 1 Ml Carp\Vial IV 04/24/22 17:11 4 mg Q2H PRN Administration Pain Tamsulosin HCl 0.4 mg 04/10/22 21:00 04/10/22 21:15 Tamsulosin Hcl 0.4 Mg Cap PO 05/10/22 20:59 0.4 mg HS ROYER Administration NPO Date Last Intake of Fluids: 04/10/22 Time Last Intake of Fluids: 23:59 Date Last Intake of Solids: 04/10/22 Time Last Intake of Solids: 23:59 Past Medical History Medical History (Updated 04/11/22 @ 07:33 by Nabil Mckinney MD) Abnormal LFTs Anemia Depression Hyperplastic colon polyp Past Family History Family History Grandmother (Paternal) Myocardial infarction Brother Myocardial infarction Father Prostate cancer Denies family history of Ovarian cancer Breast cancer Colorectal cancer Past Surgical History Surgical History H/O section History of appendectomy History of cholecystectomy History of loop electrosurgical excision procedure (LEEP) Social History Smoking Status: Never smoker Hx Alcohol Use: Yes alcohol intake frequency: holidays/special occasions only Hx Substance Use: No Physical Exam Vital Signs Last Vital Signs Temp 36.7 C 04/10/22 22:15 Pulse 68 04/10/22 22:15 Resp 18 04/10/22 22:15 BP 155/84 H 04/10/22 22:15 Pulse Ox 97 04/10/22 22:15 Testing Laboratory Results 04/11/22 05:38 04/11/22 05:38 PT 10.7 Seconds (9.0-12.0) 04/10/22 15:19 INR 1.0 (0.9-1.1) 04/10/22 15:19 Urine Color Dark Yellow 04/10/22 Unknown Urine Appearance Clear (Clear) 04/10/22 Unknown Urine pH 5.5 (4.5-7.5) 04/10/22 Unknown Ur Specific [place] 1.033 (1.000-1.030) H 04/10/22 Unknown Urine Protein 2+ (Negative) H 04/10/22 Unknown Urine Glucose (UA) Negative (Negative) 04/10/22 Unknown Urine Ketones 2+ (Negative) H 04/10/22 Unknown Urine Nitrite Positive (Negative) A 04/10/22 Unknown Ur Leukocyte Esterase 1+ (Negative) H 04/10/22 Unknown Urine WBC (Auto) 1-5 /hpf (0-5) 04/10/22 Unknown Urine RBC (Auto) 5-10 /hpf (0-4) H 04/10/22 Unknown U Hyaline Cast (Auto) 5-10 /lpf (0-5) H 04/10/22 Unknown U Epithel Cells (Auto) >30 /lpf (0-5) H 04/10/22 Unknown Urine Bacteria (Auto) Negative (Negative) 04/10/22 Unknown
[2022-04-11] MEDS ORDERED: ONDANSETRON INJ 2 MG/ML 2 ML VIAL ONE (07:36)
[2022-04-11] MEDS ORDERED: LIDOCAINE 2% 2 ML VIAL/AMP(20MG/ML) INFIL ONE (07:36)
[2022-04-11] MEDS ORDERED: fentaNYL citrate 100 MCG/2 ML VIAL ONE (07:36)
[2022-04-11] MEDS ORDERED: MIDAZOLAM HCL 1 MG/ML 2ML VIAL ONE (07:36)
[2022-04-11] MEDS ORDERED: PROPOFOL IV EMULSION 10 MG/ML 20 ML VIAL IV ONE (07:36)
[2022-04-11] MEDS ORDERED: FAMOTIDINE/PF 20 MG/2 ML VIAL IV ONE (07:52)
--- NOTE | 2022-04-11 07:52 | History & Physical Bridge Note ---
Date of Service April 11, 2022 History & Physical Bridge Note I have examined the patient, reviewed the History & Physical and in the interval since the performance of the History & Physical I have noted the following changes of clinical significance: no changes noted Cystoscopy with left stent placement.
--- NOTE | 2022-04-11 07:58 | Ultrasound Report ---
US duplex portal hepatic veins HISTORY: 57 years-old Female elev LFTs, r/o obstr and look at hepatic tissue acutely elevated LFTs COMPARISON: CT abdomen and pelvis 04/06/2022 TECHNIQUE: Multiple real-time sonographic images of the abdominal right upper quadrant were obtained assessing grayscale appearance, color and spectral flow FINDINGS: Patent hepatic, portal and splenic veins. Hepatopedal flow within the portal vein. Phasic waveforms w ithin the hepatic veins. Unremarkable appearance of the IVC. IMPRESSION: Unremarkable appearance of the hepatic vasculature. ACT 112: Negative or not required by law. The above report was generated using voice recognition software. It may contain grammatical, syntax o r spelling errors. Electronically signed by: Ezio Childers M.D. 04/11/2022 7:56 AM
[2022-04-11] MEDS ORDERED: PROMETHAZINE HCL 6.25 MG in SODIUM CHLORIDE 0.9% 50 ML IV PRN (08:15)
[2022-04-11] MEDS ORDERED: ONDANSETRON INJ 2 MG/ML 2 ML VIAL IV PRN (08:15)
[2022-04-11] MEDS ORDERED: fentaNYL citrate 100 MCG/2 ML VIAL IV PRN (08:15)
[2022-04-11] MEDS ORDERED: KETOROLAC 30 MG/ML VIAL IV PRN (08:15)
[2022-04-11] MEDS ORDERED: LABETALOL HCL IV 5 MG/ML 20ML IV PRN (08:15)
[2022-04-11] MEDS ORDERED: ATROPINE SULFATE 0.1 MG/ML 10ML SYR IV PRN (08:15)
--- NOTE | 2022-04-11 08:33 | Ultrasound Report ---
US liver CLINICAL HISTORY: elevated lft COMPARISON STUDY: CT of the abdomen and pelvis April 06, 2022. FINDINGS: There is no biliary ductal dilatation status post cholecystectomy. Common bile duct measure s 5 mm in caliber. 1.7 cm subcapsular echogenic focus within the liver may reflect focal fat. Pancrea tic body is normal. Head and tail are slightly obscured. There is no right hydronephrosis. IMPRESSION: 1. No biliary ductal dilatation status post cholecystectomy. 2. Partially obscured pancreas. 3. 1.7 cm subcapsular echogenic focus within the liver which favors focal fat. ACT 112: Negative or not required by law. Electronically signed by: Agustin Rocha M.D. 04/11/2022 8:31 AM
[2022-04-11] MEDS ORDERED: DIATRIZOATE MEGLUMINE 30% 100ML VIAL INSTIL PRN (08:37)
--- NOTE | 2022-04-11 08:43 | Operative Report ---
PG Post Operative Report Pre & Post Diagnosis Operation Date: 04/11/22 09:45 Pre-Op Diagnosis: (1) Kidney stone on left side Post-Op Diagnosis: (1) Kidney stone on left side I identified the patient and participated in the time-out.: Yes Procedure Operation Date: 04/11/22 09:45 Actual Procedures p Cystoscopy and Urethral Dilation. Left Retrograde Pyelogram and Left Ureteral Stent Insertion(Left) - Lisandro Amezquita, Surgeon Lisandro Amezquita, II, DO Newspaper Journalist None Estimated Blood Loss 1 Findings Consistent with Post-Op Diagnosis Stent placed in good position. Severe meatal stricture. Specimens None Drains 6 Fr Multilength Anesthesia Type MAC Complications none Disposition Disposition: Recovery Room Indications Patient with obstruction. Risks and benefits discussed at length. Description of Procedure Patient was consented and brought back to the operating room. Patient was placed under anesthesia in the supine position and moved to the dorsal lithotomy position. Patient was prepped and draped in the regular sterile fashion. A time out was completed. A 30degree Cystoscope was attempted to be placed. The meatus was found severely narrowed. A stricture was dilated. The scop was then placed into the bladder and the entire bladder was examined. The UO's were identified. The UO was cannulized with a catheter and a retrograde pyelogram was completed. A wire was then placed. With the wire in place, a 6 Fr Double J stent was placed. It was confirmed with fluoroscopy. With the stent in place, the bladder was emptied. The scope was removed. The patient was cleaned, aroused from anesthesia, and transferred to the pacu in stable condition having tolerated the procedure well with no complications. I was present and participated in all aspects of the procedure. The patient will be monitored in the PACU until transferred. Plan to followup in approx 2 weeks to set up stone treatments. I attest to the content of the Intraoperative Record and any orders documented therein. Any exceptions are noted below.
--- NOTE | 2022-04-11 09:03 | Fluoroscopy Report ---
FL retrograde includes kub CLINICAL HISTORY: LT CYSTO STENT COMPARISON STUDY: None FLUOROSCOPY TIME: 27 seconds. FLUOROSCOPIC IMAGES: 2 fluoroscopic spot images FINDINGS: There is catheterization of the left ureter with injection of contrast into the collecting systems. Subsequently, double-J ureteral stent was placed on the left. IMPRESSION: Placement of double-J ureteral stent on the left. ACT 112: Negative or not required by law. Electronically signed by: Grabiel Vargas M.D. 04/11/2022 9:02 AM
[2022-04-11] MEDS ORDERED: DEXAMETHASONE SOD INJ 4 MG/ML VIAL ONE (09:09)
--- NOTE | 2022-04-11 10:06 | Gastrointestinal Consultation ---
Date of Consultation April 11, 2022 Assessment & Plan (1) Elevated LFTs: Differentials considered include fatty liver, passage of biliary sludge even though she is postcholecystectomy, alcohol use. MRCP. If MRCP is normal then will consider outpatient EUS. If MRCP with bile duct abnormalities will consider ERCP. Supervising Physician Co-Signing Physician Notes Attg add: I interviewed and examined pt, reveiwed chart and labs. Pt with prior AST elevation 50-70 now admit with kidney stone, noted to have abnl LFT's. Doppler neg, lipase WNL, uls and MRCP without noah obstruction. Lip WNL. Denies heavy alcohol, prior michelle. + APAP use. No new meds/herbals. She has no RUQ pain. Her appetite has been poor dur to pain from kidney stone. H/o prior AST elevation with AST 2x ALT and borderline plts; Now admit with kidney stone on narcs + rocephin, with mildly increased transaminases, AP and borderline bili, also ferritin > 500 - Plan EUS r/o CBD obstruction; if negative, then would follow LFT's post discharge and complete serologic w/u as oupt. History of Present Illness Reason for Consultation: Elevated LFTs Requesting Physician: Dr. Pinon Attending Physician: Gisele Pinon, DO History of Present Illness Ms. Rocky Tinsley is a 57-year-old female patient who presented for left flank pain and underwent procedure for ureteral stone this morning. GI is consulted for elevated LFTs. She is status post distant cholecystectomy. As an OP, she had mild/moderately elevated AST at 77 in January. Since arrival, all LFTs are elevated: Though improved today compared to yesterday: T bili 0.9 (1.2 yesterday), AST 156 (185 yesterday), ALT 152 (yesterday 202), alkaline phosphatase 214 (192 yesterday). She has been afebrile. She denies any right upper quadrant pain after eating high-fat foods yellow skin yellow eyes. She reports a poor appetite recently but this is related to narcotic use for kidney stone. Regarding risks for liver disease, she denies any history of increased alcohol. Over the past week or so she has been taking a total of 2 g of Tylenol per day. She has not been on any antibiotics prior to admission. Denies any other [id number] meds or supplements. Allergies Allergy/AdvReac Type Severity Reaction Status Date / Time Penicillins Allergy Severe hives Verified 04/10/22 17:14 Sulfa (Sulfonamide Allergy itching Verified 04/10/22 17:14 Antibiotics) Home Medications Medication Instructions Recorded Confirmed Type paroxetine HCl 20 mg tablet 20 mg PO DAILY 10/20/21 04/10/22 History ondansetron HCl 4 mg tablet 4 mg PO Q8H PRN #20 tab 04/06/22 04/10/22 Rx oxycodone 5 mg tablet 5 mg PO Q6H PRN #20 tab 04/06/22 04/10/22 Rx tamsulosin 0.4 mg capsule (Flomax) 0.4 mg PO HS #14 cap 04/06/22 04/10/22 Rx Patient History Medical History (Updated 04/11/22 @ 18:33 by Gisele Pinon DO) Abnormal LFTs Anemia Depression Hyperplastic colon polyp Surgical History H/O section History of appendectomy History of cholecystectomy History of loop electrosurgical excision procedure (LEEP) Family History Grandmother (Paternal) Myocardial infarction Brother Myocardial infarction Father Prostate cancer Denies family history of Ovarian cancer Breast cancer Colorectal cancer Social History Smoking Status: Never smoker Second Hand Exposure: No; Hx Alcohol Use: Yes Alcohol Intake Frequency: Monthly or Less Hx Substance Use: No Preferred Language: Italian Communication Ability: Effective 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 Beliefs That Will Affect Care: None marital status: Current Living Situation: Spouse current occupational status: employed How many Children do You have: 2 Feels Safe at Home: Yes Safety Concerns: Feels Safe At This Time Childhood Exposure to Second-Hand Smoke: No caffeine: Yes Dental Care, Regularly: Yes Physical Activity Frequency: 1-2 Times per Week Seatbelt Use: always Sunscreen Use: Yes Assistive Devices: None Review of Systems Review of Systems: ROS: Gen: Denies weakness, fevers, weight loss Eyes: No eye redness, or pain, no recent vision changes Resp: No SOB, no cough Cardio: No palpitations/irregular beats, no chest pain GI: As per HPI, otherwise negative : Left flank pain, denies pain on urination Skin: No jaundice, itching or new rashes Physical Exam Constitutional: well developed and cooperative Eyes: PERRL, conjunctivae normal, anicteric sclerae ENMT: external ear and nose normal, oropharynx normal Neck: trachea midline, no thyromegaly Respiratory: normal respiratory effort, lungs clear to auscultation normal respiratory effort and able to speak in complete sentences; no respiratory distress, no labored breathing, does not use accessory muscles and no cough Cardiovascular: RRR, no murmur, no edema Gastrointestinal (Abdomen): normal bowel sounds, soft, nontender, no hepatosplenomegaly Inspection/Auscultation: abdomen normal to inspection; abdomen not distended Percussion/Palpation: + abdomen tender (Mild diffuse adbdominal msk tenderness. No signs of acute abdomen.) and abdomen soft; no guarding and abdomen not rigid Skin: no rashes, warm and dry normal turgor and + pallor Neurologic: PERRL, EOMI, accommodation nl, no face palsy, no dysarthria awake; not confused Psychiatric: A+Ox3, euthymic affect Lymphatic: no cervical or axillary lymphadenopathy Results & Data ([facility]) Vital Signs (Past 12 Hours) Vital Signs Temp Pulse Pulse Resp BP Pulse Ox 04/11/22 09:42 36.6 C 73 16 136/78 95 04/11/22 09:15 37.0 C 77 16 133/81 96 04/11/22 09:05 36.8 C 82 15 144/67 H 95 04/11/22 08:55 87 12 139/76 98 04/11/22 08:45 37.0 C 93 H 13 139/74 98 04/11/22 08:03 36.9 C 86 20 156/92 H 95 04/11/22 07:34 36.8 C 93 H 16 134/68 93 04/10/22 22:15 36.7 C 68 18 155/84 H 97 Laboratory Results See HPI for LFTs. WBC 4.2, Hb 10.9, HCT 32.6, platelets 140, INR 1.0 NA 140, K3.6, CL 108, CO2 27, BUN 12, CR 0.99 Diagnostic Findings Liver ultrasound 04/10/2022: 1. No biliary ductal dilatation status post cholecystectomy. 2. Partially obscured pancreas. 3. 1.7 cm subcapsular echogenic focus within the liver which favors focal fat. PVUS 04/10/2022:Unremarkable appearance of the hepatic vasculature. Renal ultrasound . Evidence for 6 mm left UPJ calculus with mild to moderate left-sided hydronephrosis.
--- NOTE | 2022-04-11 11:18 | Anesthesiology Progress Note ---
Date of Service April 11, 2022 Anesthesia Post Procedure Vital Signs Vital Signs: Temp Pulse Pulse Pulse Resp BP BP 04/11/22 09:42 36.6 C 73 16 136/78 04/11/22 09:15 37.0 C 77 16 133/81 04/11/22 09:05 36.8 C 82 15 144/67 H 04/11/22 08:55 87 12 139/76 04/11/22 08:45 37.0 C 93 H 13 139/74 04/11/22 08:03 36.9 C 86 20 156/92 H 04/11/22 07:34 36.8 C 93 H 16 134/68 04/10/22 22:15 36.7 C 68 18 155/84 H 04/10/22 17:18 36.9 C 69 16 130/81 04/10/22 17:09 36.9 C 69 16 130/81 04/10/22 16:42 66 18 177/56 H 04/10/22 14:42 68 18 126/65 04/10/22 14:10 76 24 131/69 04/10/22 12:54 78 18 148/80 H 04/10/22 12:08 04/10/22 11:30 36.5 C 86 20 145/80 H Pulse Ox 04/11/22 09:42 95 04/11/22 09:15 96 04/11/22 09:05 95 04/11/22 08:55 98 04/11/22 08:45 98 04/11/22 08:03 95 04/11/22 07:34 93 04/10/22 22:15 97 04/10/22 17:18 96 04/10/22 17:09 96 04/10/22 16:42 93 04/10/22 14:42 97 04/10/22 14:10 94 04/10/22 12:54 91 04/10/22 12:08 96 04/10/22 11:30 98 Pain Intensity Flank: Pain Intensity: 5 Transfer of Care Handoff Completed per policy Notes Mental Status: alert / awake / arousable Patient Amnestic to Procedure: Yes Nausea / Vomiting: adequately controlled Pain: adequately controlled Airway Patency, RR, SpO2: stable & adequate BP & HR: stable & adequate Hydration State: stable & adequate Anesthetic Complications: no major complications apparent
--- NOTE | 2022-04-11 13:36 | Magnetic Resonance Report ---
MR MRCP CLINICAL HISTORY: elevated LFTs, r/o choledocholithiasis TECHNIQUE: Multiplanar multisequence MR images of the abdomen were obtained, as per MRCP protocol. . COMPARISON: Comparison is made to CT abdomen pelvis 04/06/2022 FINDINGS: Lower chest: No acute abnormality Liver: Unremarkable. No focal lesions are seen. Gallbladder and biliary tree: Patient is status post cholecystectomy. No intra- or extrahepatic bilia ry ductal dilation. Pancreas: Unremarkable, no focal lesions. Spleen: Unremarkable. Adrenals: Unremarkable. Kidneys and ureters: Dilation of the left collecting system is again seen. There is mild hydronephros is and perinephric stranding. Bowel: A hiatal hernia is seen. Lymph nodes Retroperitoneal: Unremarkable. Mesenteric: Unremarkable. Peritoneum: Normal Vessels: Unremarkable. Abdominal wall: Unremarkable. Bones: Unremarkable. IMPRESSION: 1. No evidence of choledocholithiasis or biliary ductal dilation beyond physiologic changes status p ost cholecystectomy. 2. Left hydronephrosis compatible with recent stent placement for obstructive nephrolithiasis. ACT 112: Negative or not required by law. Electronically signed by: Juan Macias M.D. 04/11/2022 1:34 PM
[2022-04-11] MEDS ORDERED: cefTRIAXone SODIUM 1,000 MG in DEXTROSE 5% 50 ML IV SCH (14:00)
[2022-04-11] MEDS: PARoxetine HCL 20 MG TAB PO SCH (14:20)
--- NOTE | 2022-04-11 15:42 | Hospitalist Progress Note ---
Date of Service April 11, 2022 Assessment & Plan (1) Ureteral stone with hydronephrosis: Plan: Status post left ureteral stent insertion by Dr. Amezquita today. Follow-up with [facility] in a couple of weeks for definitive stone management. She denies any post stent pain but is having persistent gross hematuria. We will continue to monitor overnight. Continues tamsulosin and encouraged to stay hydrated. (2) Abnormal LFTs: Plan: Work-up this admission includes right upper quadrant ultrasound revealing no biliary ductal dilation status postcholecystectomy with a 1.7 subcapsular echogenic focus consistent with fat. Hepatic Doppler revealed unremarkable appearance of the hepatic vasculature. She also underwent an MRCP today revealing no evidence of choledocholithiasis or biliary ductal dilation. She has no right upper quadrant tenderness and is not acutely ill. AST ALT and alk phos have decreased but are still elevated. She remains on Paxil for depression. Laboratory work-up reveals iron deficiency and there is an elevated fisher and ferritin which is likely an acute phase reactant in response to recent obstructive uropathy with stone and stenting. Hepatitis panel is pending, thyroid is normal, total bilirubin is normal. Consider EUS in a.m. per GI. N.p.o. after midnight. (3) Depression: Plan: Chronic, stable, continue Paxil per outpatient regimen. 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 We will start iron supplementation at discharge. Last colonoscopy performed in 07/2018 revealing 1 6 mm sessile polyp in the cecum and one 10 mm polyp in the ascending colon. A repeat colonoscopy was due in 5 years for surveillance which is due now. Would recommend outpatient colonoscopy after discharge. PCP for monitoring of CBC post discharge. We will repeat CBC in a.m. (5) DVT prophylaxis: Plan: DVT prophylaxis - teds, scds, no heparin with ongoing gross hematuria CODE: Full code Dispo: DC to home tomorrow after endoscopic ultrasound pending clinical picture. Gisele Pinon DO [facility]ist Admission and Anticipated Discharge Date Admission Date: April 10, 2022 Subjective 57 yo F with obstructive stone s/p ureteral stent placement today -LFTs still elevated, we discussed MRCP results - at bedside -patient reports no pain post op but has wine colored urine that is persistent throughout the day -otherwise denies SOB or other issues -she is concerned about the possibility of worsening pain overnight at home and is still being worked up for transaminitis, so will stay another night--will address ongoing hematuria with urology Review of Systems Review of Systems: All systems reviewed and negative except as indicated above. Physical Exam Physical Exam: CONSTITUTIONAL: WNWD, vitals as above, generally well- appearing, NAD EYES: normal conjunctivae, no scleral icterus, ENT: external ear and nose normal, MMM NECK: trachea midline, RESPIRATORY: clear to auscultation bilaterally, no crackles, rales or wheezes, normal respiratory effort CARDIOVASCULAR: regular rate and rhythm, S1 and 2 heard without murmurs, gallops or rubs, no JVD, no peripheral edema, CHEST: inspection of chest was normal GASTROINTESTINAL: soft, nontender, ND, no guardingno CVA tenderness MUSCULOSKELETAL: strength 5/5 throughout, head is normocephalic and atraumatic, neck supple, normal palpation of chest wall without tenderness SKIN: warm and dry, NEUROLOGIC: CN 2-12 grossly intact, no sensory deficit, normal cognition, normal speech, no tremor PSYCHIATRIC: alert cooperative and oriented to person, place and time. Euthymic mood, makes good eye contact, language grossly intact, recent and javi te memory grossly intact. Results & Data Results & Data ([facility]) Vital Signs (Past 12 Hours) Vital Signs Temp Pulse Pulse Resp BP Pulse Ox 04/11/22 09:42 36.6 C 73 16 136/78 95 04/11/22 09:15 37.0 C 77 16 133/81 96 04/11/22 09:05 36.8 C 82 15 144/67 H 95 04/11/22 08:55 87 12 139/76 98 04/11/22 08:45 37.0 C 93 H 13 139/74 98 04/11/22 08:03 36.9 C 86 20 156/92 H 95 04/11/22 07:34 36.8 C 93 H 16 134/68 93 Laboratory Results Short CBC 04/11/22 Range/Units 05:38 WBC 4.29 L (4.8-10.8) K/uL Hgb 10.9 L (12.0-16.0) g/dL Hct 32.6 L (37-47) % Plt Count 140 (130-400) K/uL BMP 04/11/22 05:38 Sodium 140 Potassium 3.6 Chloride 108 H Carbon Dioxide 24 BUN 12 Creatinine 0.99 Glucose 81 Calcium 7.9 L Cardiac Enzymes 04/10/22 Range/Units 15:19 Total Creatine Kinase 33 (26-192) U/L Liver Function 04/11/22 Range/Units 05:38 Total Bilirubin 0.7 D (0.2-1.0) mg/dl Direct Bilirubin 0.2 (0-0.2) mg/dl AST 156 H (13-39) U/L ALT 152 H (7-52) U/L Alkaline Phosphatase 214 H (34-104) U/L Albumin 3.1 L (3.4-5.0) gm/dl Diagnostic Findings Portal Vein US 04/10/22 15:05 US duplex portal hepatic veins HISTORY: 57 years-old Female elev LFTs, r/o obstr and look at hepatic tissue acutely elevated LFTs COMPARISON: CT abdomen and pelvis 04/06/2022 TECHNIQUE: Multiple real-time sonographic images of the abdominal right upper quadrant were obtained assessing grayscale appearance, color and spectral flow FINDINGS: Patent hepatic, portal and splenic veins. Hepatopedal flow within the portal vein. Phasic waveforms within the hepatic veins. Unremarkable appearance of the IVC. IMPRESSION: Unremarkable appearance of the hepatic vasculature. ACT 112: Negative or not required by law. The above report was generated using voice recognition software. It may contain grammatical, syntax or spelling errors. Electronically signed by: Ezio Childers M.D. 04/11/2022 7:56 AM Liver Ultrasound 04/10/22 17:12 US liver CLINICAL HISTORY: elevated lft COMPARISON STUDY: CT of the abdomen and pelvis April 06, 2022. FINDINGS: There is no biliary ductal dilatation status post cholecystectomy. Common bile duct measures 5 mm in caliber. 1.7 cm subcapsular echogenic focus within the liver may reflect focal fat. Pancreatic body is normal. Head and tail are slightly obscured. There is no right hydronephrosis. IMPRESSION: 1. No biliary ductal dilatation status post cholecystectomy. 2. Partially obscured pancreas. 3. 1.7 cm subcapsular echogenic focus within the liver which favors focal fat. ACT 112: Negative or not required by law. Electronically signed by: Agustin Rocha M.D. 04/11/2022 8:31 AM Retrograde Pyelogram 04/11/22 08:23 [place] retrograde includes kub CLINICAL HISTORY: LT CYSTO STENT COMPARISON STUDY: None FLUOROSCOPY TIME: 27 seconds. FLUOROSCOPIC IMAGES: 2 fluoroscopic spot images FINDINGS: There is catheterization of the left ureter with injection of contrast into the collecting systems. Subsequently, double-J ureteral stent was placed on the left. IMPRESSION: Placement of double-J ureteral stent on the left. ACT 112: Negative or not required by law. Electronically signed by: Grabiel Vargas M.D. 04/11/2022 9:02 AM Cholangiopancreatography MRI 04/11/22 10:01 MR MRCP CLINICAL HISTORY: elevated LFTs, r/o choledocholithiasis TECHNIQUE: Multiplanar multisequence MR images of the abdomen were obtained, as per MRCP protocol. . COMPARISON: Comparison is made to CT abdomen pelvis 04/06/2022 FINDINGS: Lower chest: No acute abnormality Liver: Unremarkable. No focal lesions are seen. Gallbladder and biliary tree: Patient is status post cholecystectomy. No intra- or extrahepatic biliary ductal dilation. Pancreas: Unremarkable, no focal lesions. Spleen: Unremarkable. Adrenals: Unremarkable. Kidneys and ureters: Dilation of the left collecting system is again seen. There is mild hydronephrosis and perinephric stranding. Bowel: A hiatal hernia is seen. Lymph nodes Retroperitoneal: Unremarkable. Mesenteric: Unremarkable. Peritoneum: Normal Vessels: Unremarkable. Abdominal wall: Unremarkable. Bones: Unremarkable. IMPRESSION: 1. No evidence of choledocholithiasis or biliary ductal dilation beyond physiologic changes status post cholecystectomy. 2. Left hydronephrosis compatible with recent stent placement for obstructive nephrolithiasis. ACT 112: Negative or not required by law. Electronically signed by: Juan Macias M.D. 04/11/2022 1:34 PM Medications Administered Current Inpatient Medications Acetaminophen (Acetaminophen 325 Mg Tab) 650 mg PO Q4H PRN PRN Reason: Moderate Pain Stop: 05/10/22 17:11 Diatrizoate Meglumine (Diatrizoate Meglumine 30% 100ml Vial) 50 ml INSTIL UD PRN PRN Reason: surgical Stop: 04/15/22 08:36 Ketorolac Tromethamine (Ketorolac Tromethamine 15 Mg/Ml Vial) 15 mg IV Q6H PRN PRN Reason: Pain Stop: 04/15/22 17:11 Last Admin: 04/11/22 02:24 Dose: 15 mg Documented by: Morphine Sulfate (Morphine Sulfate 4 Mg/Ml 1 Ml Carp\Vial) 4 mg IV Q2H PRN PRN Reason: Pain Stop: 04/24/22 17:11 Last Admin: 04/11/22 02:00 Dose: 4 mg Documented by: Morphine Sulfate (Morphine Sulfate 2 Mg/Ml Carp) 2 mg IV Q2H PRN PRN Reason: Pain Stop: 04/24/22 17:11 Ondansetron HCl (Ondansetron Inj 2 Mg/Ml 2 Ml Vial) 4 mg IV Q4H PRN PRN Reason: Nausea And Vomiting Stop: 05/10/22 17:11 Paroxetine HCl (Paroxetine Hcl 20 Mg Tab) 20 mg PO DAILY ROYER Stop: 05/11/22 08:59 Last Admin: 04/11/22 14:20 Dose: Not Given Documented by: Tamsulosin HCl (Tamsulosin Hcl 0.4 Mg Cap) 0.4 mg PO HS ROYER Stop: 05/10/22 20:59 Last Admin: 04/10/22 21:15 Dose: 0.4 mg Documented by:
[2022-04-11] MEDS: TAMSULOSIN HCL 0.4 MG CAP PO SCH (20:25)
[2022-04-12 07:00] LABS: Hematocrit (blood only) 34.2 % (37-47); Hemoglobin 11.7 g/dL (12.0-16.0); Mean Corpuscular Hemoglobin 30.5 pg (25-34); Mean Corpuscular Hgb Conc 34.2 g/dL (32-36); Mean Corpuscular Volume 89.3 fL (80-100); Mean Platelet Volume 10.5 fL (7.4-10.4); Platelet Count 199 K/uL (130-400); RDW Coefficient of Variation 12.9 % (11.5-14.5); RDW Standard Deviation 42.2 fL (36.4-46.3); Red Blood Count 3.83 M/uL (4.2-5.4); White Blood Count 4.59 K/uL (4.8-10.8)
[2022-04-12 07:21] LABS: Albumin Globulin Ratio 1.2 (0.9-2); Albumin Level 3.4 gm/dl (3.4-5.0); Bilirubin,Total 0.5 mg/dl (0.2-1.0); Creatinine Clr Calc Pharmacy 99.2 ml/min; Est GFR (African American) 115.2 ml/min; Est GFR (Non-African American) 99.4 ml/min; Globulin 2.8 gm/dl (2.5-4.0); Potassium 3.5 mmol/L (3.5-5.1); Total Protein 6.2 gm/dl (6.0-8.3)
--- NOTE | 2022-04-12 08:08 | Urology Progress Note ---
Date of Service April 12, 2022 Assessment & Plan (1) Ureteral stone with hydronephrosis: Plan: 57-year-old female admitted with a 4 mm left proximal ureteral calculus - POD #1 s/p Cystoscopy and Urethral Dilation Left Retrograde Pyelogram and Left Ureteral Stent Insertion - Tolerating the ureteral stent with minimal bother. - Voiding spontaneously, some hematuria/dysuria as expected. - Afebrile, hemodynamically stable. - Labs reviewed -White count and creatinine stable. - Urine culture negative. - Okay to d/c from [facility] when medically stable. - Recommend d/c with Tamsulosin, prn Pyridium and prn pain medication for stent management. - Expected clinical course reviewed, all questions answered. - Will arrange outpatient follow-up with our service for definitive stone treatment. - Thank you for allowing us to participate in the acute care of Mrs. Tinsley. Please reconsult us with additional questions, concerns or changes in patient status. Admission and Anticipated Discharge Date Admission Date: April 10, 2022 Subjective Patient examined at bedside this AM. Awake, resting in bed on arrival. No acute distress. Tolerating the ureteral stent well. Denies any pain or discomfort at present. Voiding spontaneously. Some hematuria and dysuria. Feels she is emptying her bladder. Stream is strong. No fevers or chills. No nausea or vomiting. States she is undergoing further work-up this admission for abnormal LFTs. Review of Systems Constitutional: as per Subjective / HPI Genitourinary: as per Subjective / HPI Physical Exam Constitutional: no acute distress Respiratory: normal respiratory effort; no respiratory distress and no labored breathing Gastrointestinal (Abdomen): Inspection/Auscultation: abdomen normal to inspection Skin: No visible rashes or lesions to exposed skin areas Neurologic: moves all extremities and awake Psychiatric: A+Ox3, euthymic affect Genitourinary: no CVA tenderness Results & Data ([facility]) Vital Signs (Past 12 Hours) Vital Signs Temp Pulse Resp BP Pulse Ox 04/11/22 23:28 36.7 C 81 16 135/62 96 PG Care Time/CCT Total # of Minutes Spent Total Time Spent with Patient: Total time spent is greater than 50% in coordination of care (as documented) at patient's floor/unit and/or counseling patient: Coding Level of Care Code 91200 Subseq Hosp Care Lvl 2 Diagnoses Ureteral stone with hydronephrosis N13.2
[2022-04-12] MEDS: PARoxetine HCL 20 MG TAB PO SCH (08:16)
[2022-04-12] MEDS ORDERED: FAMOTIDINE 20 MG in SYRINGE 3 ML IV ONE (10:15)
[2022-04-12] MEDS: LACTATED RINGER'S 1,000 ML IV SCH ×2 (10:25→20:38)
--- NOTE | 2022-04-12 11:08 | Gastroenterology Progress Note ---
Date of Service April 12, 2022 Assessment & Plan (1) Elevated LFTs: Plan: Suspicious for choledocholithiasis. Plan: EUS today by Dr. Arzate. Will progress to ERCP if choledocholithiasis is present. Further recommendations to follow EUS +/- ERCP. Admission and Anticipated Discharge Date Admission Date: April 10, 2022 Supervising Physician Co-Signing Physician Notes I performed a history and physical examination of the patient today, including specifically on physical exam - soft abdomen. I have discussed the patient's management with the advanced practitioner. Please refer to the nurse practitioner's note for the documented findings and plan of care. EUS+/- ERCP. Patient was explained in detail regarding risks, benefits, limitations and alternatives of the above endoscopic procedure. Risks of intravenous sedation used for procedure were also explained. Risks include, but not limited to perforation, bleeding, infection, respiratory distress, cardiac arrest and . Risk of cholangitis and pancreatitis explained. Patient is also aware about the possibility of missed lesion. Patient's questions were answered. The patient verbalized understanding the information and agreed to undergo the procedure. Subjective 57-year-old female admitted 04/10 for flank pain - ureteral stone and underwent stenting yesterday. Also on arrival, bump in LFTs compared to her prior outpatient labs. Denies any RUQ abdominal pain or jaundice.She is status post distant cholecystectomy. Review of Systems Review of Systems: ROS: Gen: Denies weakness, fevers, weight loss Eyes: No eye redness, or pain, no recent vision changes Resp: No SOB, no cough Cardio: No palpitations/irregular beats, no chest pain GI: No abdominal pain, no nausea/vomiting : Flank pain resolved with ureteral stending Skin: No jaundice, itching or new rashes Physical Exam Constitutional: well developed, + ill appearing, + thin and cooperative Eyes: PERRL, conjunctivae normal, anicteric sclerae ENMT: external ear and nose normal, oropharynx normal Neck: trachea midline, no thyromegaly Respiratory: normal respiratory effort, lungs clear to auscultation Cardiovascular: RRR, no murmur, no edema Gastrointestinal (Abdomen): normal bowel sounds, soft, nontender, no hepatosplenomegaly Skin: no rashes, warm and dry normal turgor no jaundice Neurologic: PERRL, EOMI, accommodation nl, no face palsy, no dysarthria awake; not confused Psychiatric: A+Ox3, euthymic affect Lymphatic: no cervical or axillary lymphadenopathy Results & Data ([facility]) Vital Signs (Past 12 Hours) Vital Signs Temp Pulse Resp BP Pulse Ox 04/12/22 10:09 36.8 C 156/93 H 04/12/22 08:40 70 168/100 H 97 04/12/22 08:26 36.7 C 74 16 148/84 H 98 04/11/22 23:28 36.7 C 81 16 135/62 96 Laboratory Results T bili 0.5, AST 107, ALT 117, alk phos 212. The all improved compared to the day prior. WBC 4.5, Hb 11, HCT 34, PLT S199, INR 1.0, NA 141, K3.5, CL 104, CO2 29, BUN 18, CR 0.6, glucose 124. Diagnostic Findings US on 04/10/22: 1. No biliary ductal dilatation status post cholecystectomy. 2. Partially obscured pancreas. 3. 1.7 cm subcapsular echogenic focus within the liver which favors focal fat. PVUS 04/10/22: Unremarkable appearance of the hepatic vasculature. MRCP 04/11/22: Liver: Unremarkable. No focal lesions are seen. Gallbladder and biliary tree: Patient is status post cholecystectomy. No intra- or extrahepatic biliary ductal dilation.
[2022-04-12 11:22] LABS: HBSAG NON-REACTIVE (NON-REACTIVE); Hepatitis A Antibody IgM NON-REACTIVE (NON-REACTIVE); Hepatitis B Core Antibody IgM NON-REACTIVE (NON-REACTIVE)
[2022-04-12] MEDS ORDERED: KETOROLAC TROMETHAMINE 15 MG/ML VIAL IV STA (14:47)
--- NOTE | 2022-04-12 14:47 | Anesthesiology Consultation ---
Date of Service April 12, 2022 Assessment & Plan (1) Encounter for pre-operative examination: Chart Review Chart Review: Acceptable Risk for Surgery History Surgery Operation Date: 04/10/22 18:00 Proposed Procedures p Cytsoscopy with Left Ureteral Stent insertion - Nicholas Anderson MD Operation Date: 04/11/22 09:45 Proposed Procedures p Cysto, Left Ureteral Stent Insertion/Removal - Lisandro Amezquita DO Operation Date: 04/12/22 07:00 Proposed Procedures p Endoscopic Ultrasonography Upper - Clifton Arzate MD s Endoscopic Retrograde Cholangiopancreatogram - Clifton Arzate MD Height/Weight Height: 5 ft 5 in Weight: 73.4 kg Allergies Allergy/AdvReac Type Severity Reaction Status Date / Time Penicillins Allergy Severe hives Verified 04/10/22 17:14 Sulfa (Sulfonamide Allergy itching Verified 04/10/22 17:14 Antibiotics) Medications Home Medications Medication Instructions Recorded Confirmed Last Taken paroxetine HCl 20 mg tablet 20 mg PO DAILY 10/20/21 04/10/22 04/10/22 ondansetron HCl 4 mg tablet 4 mg PO Q8H PRN #20 tab 04/06/22 04/10/22 04/10/22 oxycodone 5 mg tablet 5 mg PO Q6H PRN #20 tab 04/06/22 04/10/22 04/10/22 tamsulosin 0.4 mg capsule (Flomax) 0.4 mg PO HS #14 cap 04/06/22 04/10/22 04/10/22 Active Medications Generic Name Dose Route Start Last Admin Trade Name Freq PRN Reason Stop Dose Admin Acetaminophen 650 mg 04/10/22 17:12 04/12/22 14:04 Acetaminophen 325 Mg Tab PO 05/10/22 17:11 650 mg Q4H PRN Administration Moderate Pain Lactated Ringer's 1,000 mls @ 125 mls/hr 04/12/22 10:30 04/12/22 10:25 Lr IV 05/12/22 10:29 125 mls/hr .Q8H [facility] Administration Ketorolac Tromethamine 15 mg 04/10/22 17:12 04/11/22 02:24 Ketorolac Tromethamine 15 Mg/Ml Vial IV 04/15/22 17:11 15 mg Q6H PRN Administration Pain Ondansetron HCl 4 mg 04/10/22 17:12 04/12/22 14:04 Ondansetron Inj 2 Mg/Ml 2 Ml Vial IV 05/10/22 17:11 4 mg Q4H PRN Administration Nausea And Vomiting Paroxetine HCl 20 mg 04/11/22 09:00 04/12/22 08:16 Paroxetine Hcl 20 Mg Tab PO 05/11/22 08:59 20 mg DAILY [facility] Administration Tamsulosin HCl 0.4 mg 04/10/22 21:00 04/11/22 20:25 Tamsulosin Hcl 0.4 Mg Cap PO 05/10/22 20:59 0.4 mg HS [facility]ER Administration NPO Date Last Intake of Fluids: 04/12/22 Time Last Intake of Fluids: 00:00 Date Last Intake of Solids: 04/10/22 Time Last Intake of Solids: 18:30 Past Medical History Medical History Abnormal LFTs Anemia Depression Hyperplastic colon polyp Past Family History Family History Grandmother (Paternal) Myocardial infarction Brother Myocardial infarction Father Prostate cancer Denies family history of Ovarian cancer Breast cancer Colorectal cancer Past Surgical History Surgical History H/O section History of appendectomy History of cholecystectomy History of loop electrosurgical excision procedure (LEEP) Social History Smoking Status: Never smoker Hx Alcohol Use: Yes alcohol intake frequency: holidays/special occasions only Hx Substance Use: No Physical Exam Vital Signs Last Vital Signs Temp 36.8 C 04/12/22 10:09 Pulse 66 04/12/22 14:11 Resp 16 04/12/22 08:26 BP 170/80 H 04/12/22 14:11 Pulse Ox 97 04/12/22 08:40 Testing Laboratory Results 04/12/22 06:23 04/12/22 06:23 PT 10.7 Seconds (9.0-12.0) 04/10/22 15:19 INR 1.0 (0.9-1.1) 04/10/22 15:19 Urine Color Dark Yellow 04/10/22 Unknown Urine Appearance Clear (Clear) 04/10/22 Unknown Urine pH 5.5 (4.5-7.5) 04/10/22 Unknown Ur Specific Daisy 1.033 (1.000-1.030) H 04/10/22 Unknown Urine Protein 2+ (Negative) H 04/10/22 Unknown Urine Glucose (UA) Negative (Negative) 04/10/22 Unknown Urine Ketones 2+ (Negative) H 04/10/22 Unknown Urine Nitrite Positive (Negative) A 04/10/22 Unknown Ur Leukocyte Esterase 1+ (Negative) H 04/10/22 Unknown Urine WBC (Auto) 1-5 /hpf (0-5) 04/10/22 Unknown Urine RBC (Auto) 5-10 /hpf (0-4) H 04/10/22 Unknown U Hyaline Cast (Auto) 5-10 /lpf (0-5) H 04/10/22 Unknown U Epithel Cells (Auto) >30 /lpf (0-5) H 04/10/22 Unknown Urine Bacteria (Auto) Negative (Negative) 04/10/22 Unknown 04/10/22 Unknown Urine Culture - Final Urine,Clean Catch More than three types of organisms present, all high counts mixed probable skin cali - No further identifications or sensitivities to follow. 04/12/22 14:14 POC Glucose 97
[2022-04-12] MEDS ORDERED: PROMETHAZINE HCL 12.5 MG in SODIUM CHLORIDE 0.9% 50 ML IV PRN (17:35)
[2022-04-12] MEDS ORDERED: fentaNYL citrate 100 MCG/2 ML VIAL IV PRN (17:35)
[2022-04-12] MEDS ORDERED: ONDANSETRON INJ 2 MG/ML 2 ML VIAL IV PRN (17:35)
[2022-04-12] MEDS ORDERED: FLUMAZENIL 0.1 MG/1 ML 10 ML VIAL IV PRN (17:35)
[2022-04-12] MEDS ORDERED: LABETALOL HCL IV 5 MG/ML 20ML IV PRN (17:35)
[2022-04-12] MEDS ORDERED: ATROPINE SULFATE 0.1 MG/ML 10ML SYR IV PRN (17:35)
[2022-04-12] MEDS ORDERED: ePHEDrine sulfate 50 MG/ML AMP IV PRN (17:35)
[2022-04-12] MEDS ORDERED: NALOXONE HCL 0.4 MG/1 ML VIAL/CARP IV PRN (17:35)
[2022-04-12] MEDS ORDERED: PROPOFOL IV EMULSION 10 MG/ML 20 ML VIAL IV ONE (18:05)
[2022-04-12] MEDS ORDERED: MIDAZOLAM HCL 1 MG/ML 2ML VIAL ONE (18:38)
[2022-04-12] MEDS ORDERED: ROCURONIUM BROMIDE 10 MG/ML 5 ML VIAL IV ONE ×2 (18:39→19:05)
[2022-04-12] MEDS ORDERED: ONDANSETRON INJ 2 MG/ML 2 ML VIAL ONE (18:39)
[2022-04-12] MEDS ORDERED: LIDOCAINE 2% 2 ML VIAL/AMP(20MG/ML) INFIL ONE (18:39)
[2022-04-12] MEDS ORDERED: DEXAMETHASONE SOD INJ 4 MG/ML VIAL ONE (18:39)
[2022-04-12] MEDS ORDERED: fentaNYL citrate 100 MCG/2 ML VIAL ONE (18:39)
[2022-04-12] MEDS ORDERED: HEPARIN SOD (PORCINE) 1000 UNIT/ML ONE (19:05)
--- NOTE | 2022-04-12 19:13 | Operative Report ---
Post Operative Report Pre & Post Diagnosis Operation Date: 04/10/22 18:00 <No data on this case meets the specified criteria> Operation Date: 04/11/22 09:45 Pre-Op Diagnosis: (1) Kidney stone on left side Post-Op Diagnosis: (1) Kidney stone on left side Operation Date: 04/12/22 07:00 Pre-Op Diagnosis: Elevated LFTs Post-Op Diagnosis: Elevated LFTs I identified the patient and participated in the time-out.: Yes Procedure Operation Date: 04/10/22 18:00 <No data on this case meets the specified criteria> Operation Date: 04/11/22 09:45 Actual Procedures p Cystoscopy, Urethral Dilation, Left Retrograde Pyelogram, Left Ureteral Stent Insertion(Left) - Lisandro Amezquita DO Operation Date: 04/12/22 07:00 Actual Procedures p Endoscopic Ultrasonography Upper, Liver Biopsy(Not Applicable) - Clifton Arzate MD Surgeon Clifton Arzate MD Licensing Services Clerk None Estimated Blood Loss 0 Findings See Below (Normal size CBD, no stones.) Specimens Liver Biopsy and lower esophagus Description of Procedure EGS/EUS I attest to the content of the Intraoperative Record and any orders documented therein. Any exceptions are noted below.
--- NOTE | 2022-04-12 19:40 | GI REPORT ---
Patient Name: Rocky Tinsley Procedure Date: 04/12/2022 7:01 PM Date of : 1965 Admit Type: Inpatient Age: 57 Gender: Female Attending MD: Clifton Arzate MD Procedure: Upper EUS Providers: Clifton Arzate MD Referring MD: Gisele Pinon Do Indications: Elevated liver enzymes, Suspected choledocholithiasis Medicines: General Anesthesia Complications: No immediate complications. Estimated Blood Loss: Estimated blood loss: none. Procedure: Pre-Anesthesia Assessment: - Prior to the procedure, a History and Physical was performed, and patient medications, allergies and sensitivities were reviewed. The patient's tolerance of previous anesthesia was reviewed. - The risks and benefits of the procedure and the sedation options and risks were discussed with the patient. All questions were answered and informed consent was obtained. - Patient identification and proposed procedure were verified prior to the procedure by the physician and the nurse. The procedure was verified in the procedure room. - Pre-procedure physical examination revealed no contraindications to sedation. After obtaining informed consent, the endoscope was passed under direct vision. Throughout the procedure, the patient's blood pressure, pulse, and oxygen saturations were monitored continuously. The Endosonoscope was introduced through the mouth, and advanced to the second part of duodenum. The upper EUS was accomplished without difficulty. The patient tolerated the procedure well. Findings: ENDOSONOGRAPHIC FINDING: : There was no sign of significant endosonographic abnormality in the ampulla. No masses were identified. There was no sign of significant endosonographic abnormality in the common bile duct. The maximum diameter of the duct was 5 mm. No stones and no biliary sludge were identified. Evidence of a previous cholecystectomy was identified endosonographically. There was abnormal echogenicity in the left lobe of the liver. This area was hyperechoic. Fine needle biopsy was performed. Color Doppler imaging was utilized prior to needle puncture to confirm a lack of significant vascular structures within the needle path. One pass was made with the 19 gauge ultrasound core biopsy needle using a transgastric approach. A visible core of tissue was obtained. Verification of patient identification for the specimen was done by the physician and nurse using the patient's name and date. There was no sign of significant endosonographic abnormality in the entire pancreas. The pancreatic duct measured up to 2 mm in diameter. There was no sign of significant endosonographic abnormality in the visualized portion of the left adrenal gland. There was no sign of significant endosonographic abnormality involving the celiac trunk. Impression: - There was no sign of significant pathology in the ampulla. - There was no sign of significant pathology in the common bile duct. No stones. - Evidence of a cholecystectomy. - There was abnormal echogenicity in the liver consistent with fatty infiltration. Fine needle biopsy performed. - There was no sign of significant pathology in the entire pancreas. - Endosonographic images of the left adrenal gland were unremarkable. - The celiac trunk was endosonographically normal. Recommendation: - [facility]. - Advance diet as tolerated. - Await path results. - Recall GI as needed. Clifton Arzate MD 04/12/2022 7:39:23 PM This report has been signed electronically. Note Initiated On: 04/12/2022 7:01 PM Number of Addenda: 0 I attest to the content of the Intraoperative Record and orders documented therein, exceptions below {[id number]}
--- NOTE | 2022-04-12 19:41 | GI REPORT ---
Patient Name: Rocky Tinsley Procedure Date: 04/12/2022 6:52 PM Date of : 1965 Admit Type: Inpatient Age: 57 Gender: Female Attending MD: Clifton Arzate MD Procedure: Upper GI endoscopy Providers: Clifton Arzate MD Referring MD: Gisele Pinon Do Indications: Suspected gastro-esophageal reflux disease Medicines: General Anesthesia Complications: No immediate complications. Estimated Blood Loss: Estimated blood loss: none. Procedure: Pre-Anesthesia Assessment: - Prior to the procedure, a History and Physical was performed, and patient medications, allergies and sensitivities were reviewed. The patient's tolerance of previous anesthesia was reviewed. - The risks and benefits of the procedure and the sedation options and risks were discussed with the patient. All questions were answered and informed consent was obtained. - Patient identification and proposed procedure were verified prior to the procedure by the physician and the nurse. The procedure was verified in the procedure room. - Pre-procedure physical examination revealed no contraindications to sedation. After obtaining informed consent, the endoscope was passed under direct vision. Throughout the procedure, the patient's blood pressure, pulse, and oxygen saturations were monitored continuously. The Endoscope was introduced through the mouth, and advanced to the second part of duodenum. The upper GI endoscopy was accomplished without difficulty. The patient tolerated the procedure well. Findings: Lafferty-colored mucosa was present. The maximum longitudinal extent of these esophageal mucosal changes was 2 cm in length. Biopsies were taken with a cold forceps for histology. Verification of patient identification for the specimen was done by the physician and nurse using the patient's name and date. The entire examined stomach was normal. The duodenal bulb and second portion of the duodenum were normal. Impression: - Lafferty-colored mucosa suspicious for short-segment Mott's esophagus. Biopsied. - Normal stomach. - Normal duodenal bulb and second portion of the duodenum. Recommendation: - Perform an upper endoscopic ultrasound (UEUS) today. - Follow an antireflux regimen. - Use a proton pump inhibitor PO daily. Clifton Arzate MD 04/12/2022 7:36:20 PM Note Initiated On: 04/12/2022 6:52 PM Number of Addenda: 0 I attest to the content of the Intraoperative Record and orders documented therein, exceptions below {[id number]}
--- NOTE | 2022-04-12 20:13 | Anesthesiology Progress Note ---
Date of Service April 12, 2022 Anesthesia Post Procedure Vital Signs Vital Signs: Temp Pulse Pulse Resp BP Pulse Ox 04/12/22 20:00 36.6 C 57 L 12 154/87 H 100 04/12/22 19:50 67 12 137/77 100 04/12/22 19:40 67 12 161/90 H 100 04/12/22 19:30 83 12 157/87 H 100 04/12/22 19:26 36.0 C L 90 16 162/87 H 99 04/12/22 15:45 36.5 C 67 20 170/88 H 96 04/12/22 14:11 66 170/80 H 04/12/22 10:09 36.8 C 156/93 H 04/12/22 08:40 70 168/100 H 97 04/12/22 08:26 36.7 C 74 16 148/84 H 98 04/11/22 23:28 36.7 C 81 16 135/62 96 Pain Intensity Flank: Pain Intensity: 2 Transfer of Care Handoff Completed per policy Notes Mental Status: alert / awake / arousable Patient Amnestic to Procedure: Yes Nausea / Vomiting: adequately controlled Pain: adequately controlled Airway Patency, RR, SpO2: stable & adequate BP & HR: stable & adequate Hydration State: stable & adequate Anesthetic Complications: no major complications apparent
[2022-04-12] MEDS: TAMSULOSIN HCL 0.4 MG CAP PO SCH (20:49)
[2022-04-12] MEDS ORDERED: amLODIPine BESYLATE 5 MG TAB PO ONE (22:14)
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
[2022-04-13] MEDS: LACTATED RINGER'S 1,000 ML IV SCH (04:39)
--- NOTE | 2022-04-13 07:50 | Discharge Summary ---
Date of Service April 13, 2022 Admission HPI Per Admitting Provider This is a 57-year-old female without significant past medical history, who presented to the ER initially on 04/06 where she had a CT of the abdomen pelvis completed showing left mild to moderate hydronephrosis and proximal hydroureter with a 4 mm calculus present within the proximal left ureter just distal to the UPJ producing the obstruction present. 2 additional nonobstructing renal calculi are present measuring 4 and 6 mm. No evidence of right renal calculus or hydronephrosis. She was treated with pain medication and fluid and was improved enough that she wished to go home at that point in time. She represe nts today for worsening pain, nausea, inability to tolerate po intake, and pain rated 10/10 from the left lower back wrapping around her flank and into the left lower abdomen. KUB of the abdomen shows 3 mm calculus in the left renal pelvis, and renal ultrasound completed today shows 6 mm left UPJ calculus with mild to moderate left-sided hydronephrosis. Her pain is improved at this point after fl uids and pain medication in the ER. She reports no bowel movement in 3 days and was using percocet at home a few days ago. She has been medicating herself with Tylenol and ibuprofen alternating at home due to significant pain. She reports having a fever of 100 at home on Monday evening, and admits to having sweats and chills. She last ate this morning around 10 AM. Urology was consulted and recommends that the patient stay for possible stent placement in the morning. Principal Diagnosis Ureteral stone with hydronephrosis Abnormal LFTs Iron deficiency anemia s/p liver and esophageal biopsy with pathology pending Discharge Exam CONSTITUTIONAL: WNWD, vitals as above, generally frazzled, holding her head EYES: normal conjunctivae, no scleral icterus, ENT: external ear and nose normal, MMM NECK: trachea midline, RESPIRATORY: clear to auscultation bilaterally, no crackles, rales or wheezes, normal respiratory effort CARDIOVASCULAR: regular rate and rhythm, S1 and 2 heard without murmurs, gallops or rubs, no JVD, no peripheral edema, CHEST: inspection of chest was normal GASTROINTESTINAL: soft, nontender, ND, no guarding MUSCULOSKELETAL: strength 5/5 throughout, head is normocephalic and atraumatic SKIN: warm and dry, NEUROLOGIC: CN 2-12 grossly intact, no sensory deficit, normal cognition, normal speech, no tremor PSYCHIATRIC: alert cooperative and oriented to person, place and time. Euthymic mood, makes good eye contact, language grossly intact, recent and remote memory grossly intact. Discharge Data Allergies Allergy/AdvReac Type Severity Reaction Status Date / Time Penicillins Allergy Severe hives Verified 04/10/22 17:14 Sulfa (Sulfonamide Allergy itching Verified 04/10/22 17:14 Antibiotics) Consultations 04/10/22 13:50 Consult Urology Stat 04/10/22 14:09 ED Decision to Admit Stat 04/10/22 14:47 Consult Urology Routine 04/10/22 15:13 Consult Gastroenterology Routine Procedures Performed Operation Date: 04/10/22 18:00 <No data on this case meets the specified criteria> Operation Date: 04/11/22 09:45 Actual Procedures p Cystoscopy, Urethral Dilation, Left Retrograde Pyelogram, Left Ureteral Stent Insertion(Left) - Lisandro Amezquita, Operation Date: 04/12/22 07:00 Actual Procedures p Endoscopic Ultrasonography Upper, Liver Biopsy(Not Applicable) - Clifton Arzate MD Ordered Studies 04/10/22 11:37 US renal/blad retro comp Stat 04/10/22 15:05 US duplex portal hepatic veins Routine 04/10/22 17:12 US liver Routine 04/11/22 08:23 FL retrograde includes kub Routine 04/11/22 10:01 MR MRCP Routine 04/12/22 15:34 US upper EUS PACS images Routine Hospital Course (1) Ureteral stone with hydronephrosis: Status post left ureteral stent insertion by Dr. Amezquita 04/11. Follow-up with [facility] urology in a couple of weeks for definitive stone management. She denied any post stent pain but was having persistent gross hematuria that improved prior to discharge. Continues tamsulosin and encouraged to stay hydrated. Definitive stone therapy by Urology in the next couple of weeks as outpatient. (2) Abnormal LFTs: Work-up this admission includes right upper quadrant ultrasound revealing no biliary ductal dilation status postcholecystectomy with a 1.7 subcapsular echogenic focus consistent with fat. Hepatic Doppler revealed unremarkable appearance of the hepatic vasculature. She also underwent an MRCP revealing no evidence of choledocholithiasis or biliary ductal dilation. She has no right upper quadrant tenderness and is not acutely ill. AST ALT and alk phos have decreased but are still elevated. She remains on Paxil for depression. Laboratory work-up reveals iron deficiency and there is an elevated ferritin which is likely an acute phase reactant in response to recent obstructive uropathy with stone and stenting. Hepatitis panel is pending, thyroid is normal, total bilirubin is normal. EUS with fatty liver and liver biopsy performed on 04/12. Path pending at discharge. Follow-up with GI as outpatient. (3) Depression: Chronic, stable, continue Paxil per outpatient regimen. (4) Anemia: Dilutional anemia with evidence of iron deficiency. We will start iron supplementation at discharge. Last colonoscopy performed in 07/2018 revealing one 6 mm sessile polyp in the cecum and one 10 mm polyp in the ascending colon. A repeat colonoscopy was due in 5 years for surveillance which is due now. Would recommend outpatient colonoscopy after discharge. PCP for monitoring of CBC post discharge. Total Time Total Time Spent Total Time Spent (In Minutes): 60 Discharge Plan Discharge Items Patient Disposition: Home - Self-Care Reason For Visit: R HYDONEPHROSIS Discharge Diagnosis: Ureteral stone with hydronephrosis Abnormal LFTs Iron deficiency anemia s/p liver and esophageal biopsy with pathology pending Condition on Discharge: Good Activity: Resume your previous activity Non-emergency contact: Primary Care Provider and [employer] Club Manager Call non-emergency contact if: you have any medication questions, your symptoms worsen, your pain is not controlled, your pain is worsening, your pain is unusual for you, your pain is concerning for you and you have a fever Follow-up/Referrals: Lisandro Amezquita DO [Physician] - 04/26/22 9:45 am Hilary Fleming MD [Primary Care Provider] - 04/18/22 11:20 am (Date & Time 04/18/2022 11:20 AM Provider Hilary Fleming MD Department Family Practice [facility] ) Diet: Regular Addtl Attending Provider Instructions: Please take all medications as instructed on discharge list below. You are being started on iron supplements (see below), pantoprazole (proton pump inhibitor/acid head of ict), and you were refilled for flomax once daily while stone is present. Ibuprofen was also given in case of severe pain. Per [facility] GI team, it is ok to take this starting now if you need it for severe pain. During your upper endoscopy, biopsies were taken of your lower esophagus that were concerning for Mott's esophagus. The pathology results from this and your liver biopsy will return in about one week. If you don't hear from someone in the Gastroenterology office, please given them a call. They will also likely be scheduling you for a return visit to recheck your lever function tests in a few weeks and to review some of the other bloodwork that is still pending at discharge from the hospital You are due for screening colonoscopy. Please schedule for repeat at your convenience. Iron deficiency anemia noted on labwork--iron supplementation started. Needs recheck of labwork in a few weeks. Your primary care physician can order this. It is recommended that you follow-up with your primary care provider within one week of discharge from the hospital to ensure you are still doing well, and to review information above, order needed labs, review results, etc. It was a pleasure taking care of you! Please call if you have any questions or problems. You can reach a [facility] hospitalist on duty at [facility] 24 hours a day by calling [phone]. Take care of yourself. Gisele Pinon, [facility] Medical Centerist Addtl Rehabilitation Aide/Scheduler Provider Instructions: Please call the urology office at [phone] with any questions, concerns or need to reschedule appointments for any reason. We are happy to assist you. While you have a ureteral stent in place: Some discomfort is normal. Certain movements may trigger pain or a feeling that you need to urinate. You may also feel mild soreness or pressure before or during urination. Your urine may be slightly pink or red. This is due to bleeding caused by minor irritation from the stent. This may happen on and off while you have the stent, it is not harmful and is to be expected. Medication to help minimize discomfort or bladder spasms, or to prevent infection may be prescribed. Take this as directed. Drink plenty of fluids to help flush out your urinary tract. When to call [facility] Urology at [phone]: Your urine contains heavy blood clots or you are unable to urinate. You are constantly leaking urine. Fever of 101F or higher, chills, nausea, or vomiting Your pain is not relieved with medication. The end of the stent comes out of your urethra. Pending Studies at Discharge: Yes Studies:: liver biopsy and esophageal biopsy pathology, serology workup for transaminitis Stand-Alone Forms: My [facility] Medications and DC Order Prescriptions: New ferrous sulfate 325 mg (65 mg iron) Tablet,Delayed Release (Dr/Ec) 325 mg PO TIDM Qty: 90 RF: 0 pantoprazole [Protonix] 40 mg tablet,delayed release (DR/EC) 40 mg PO DAILY Qty: 30 RF: 0 ibuprofen 800 mg tablet 800 mg PO Q8H PRN (Reason: severe pain (scale score 7-10)) Qty: 30 RF: 0 phenazopyridine [Pyridium] 100 mg tablet 100 mg PO Q8H PRN (Reason: bladder spasms) Qty: 30 RF: 0 Continued paroxetine HCl 20 mg tablet 20 mg PO DAILY RF: 0 tamsulosin [Flomax] 0.4 mg capsule 0.4 mg PO HS Qty: 30 RF: 0 oxycodone 5 mg tablet 5 mg PO Q6H PRN (Reason: pain) Qty: 20 RF: 0 ondansetron HCl 4 mg tablet 4 mg PO Q8H PRN (Reason: nausea and vomiting) Qty: 20 RF: 0 Discharge Orders: Discharge Order (Routine); Ordered 04/13/22 Ordered By: Gisele Moore/Other Patient Handouts: Having a Ureteral Stent Admission Data Admit Date/Time: 04/10/22 14:47 Attending Provider: Gisele Pinon Admit Provider: Gisele Pinon Primary Care Provider: Hilary Fleming Other Providers: Nicholas Anderson ; Gisele Pinon ; Moshe Seay Other Interventions: Discharge Summary Assessment (RN) Last Done: 04/13/22 07:50
[2022-04-13] MEDS: FERROUS SULFATE 325 MG TAB PO SCH ×2 (08:30→12:55)
[2022-04-13] MEDS: PARoxetine HCL 20 MG TAB PO SCH (08:31)
[2022-04-16 01:06] LABS: Anti Mitochondrial Antibody NEGATIVE (NEGATIVE); Anti Nuclear Antibody Screen NEGATIVE (NEGATIVE); CMV IgM Antibody <30.00 AU/mL; Parvovirus IgG 4.7 (<0.9); Parvovirus IgM 0.1 (<0.9); Transglutaminase, Tissue IgA <1.0 U/mL
== END 2022-04-13 13:31 | disposition home or self-care (01) | DRG 661 ==
LOC: ED 11:24 → 3E 14:47 → 3W 04-12 20:22
DX: K22.70 Barrett's esophagus without dysplasia; Z88.2 Allergy status to sulfonamides; Z86.010 Personal history of colon polyps; R94.5 Abnormal results of liver function studies; Z88.0 Allergy status to penicillin; Z90.49 Acquired absence of other specified parts of digestive tract; D50.9 Iron deficiency anemia, unspecified; F32.A Depression, unspecified; N13.2 Hydronephrosis with renal and ureteral calculous obstruction